=== PATIENT | male | born 1940 | race Caucasian/White ===

== ENCOUNTER 2017-10-06 14:06 | Observation (INO) | payer OTHER, BC ==
--- NOTE | 2017-10-06 16:20 | CPEKG ---
Heart Rate: 64 RR Interval: 938 P-R Interval: 220 QRSD Interval: 88 QT Interval: 388 QTC Interval: 401 P [place]: 87 QRS [place]: 53 T Wave [place]: 62 EKG Severity - ABNORMAL ECG - EKG Impression: SINUS RHYTHM EKG Impression: FIRST DEGREE AV BLOCK Electronically Signed By: Soham Honeycutt 06-Oct-2017 18:56:36
--- NOTE | 2017-10-06 16:29 | EDPHY ---
H & P Stated Complaint: 20 seconds vision loss to left eye last night. Time Seen by Provider: 10/06/17 15:56 HPI/ROS: CHIEF COMPLAINT: Transient vision loss left eye HISTORY OF PRESENT ILLNESS: The patient presents to the ED after he experienced an episode of transient vision loss in his left eye yesterday. The patient describes approximately 20 second vision loss of his superior visual field. The patient reports a similar episode 18 months ago which ultimately resulted in him getting endarterectomy. The patient is currently on a baby aspirin. He has no history of atrial fibrillation. The patient denies any complaints of arrhythmia. The patient has no complaints of acute headache. He denies any complaints of neck pain or cervical manipulation. The patient denies any peripheral numbness or weakness. He has had no recurrence symptoms today. He spoke with his primary care provider who advised him to come to the emergency department for further evaluation. REVIEW OF SYSTEMS: A comprehensive 10 point review of systems is otherwise negative aside from elements mentioned in the history of present illness. Source: Patient Exam Limitations: No limitations - Personal History Current Tetanus Diphtheria and Acellular Pertussis (TDAP): Yes - Medical/Surgical History Hx Asthma: No Hx Chronic Respiratory Disease: No Hx Diabetes: No Hx Cardiac Disease: No Hx Renal Disease: No Hx Cirrhosis: No Hx Alcoholism: No Hx HIV/AIDS: No Hx Splenectomy or Spleen Trauma: No Other PMH: NON HODGKIN LYMPHOMA, PROSTRATE CANCER, 2 STEM CELL TRANSPLANTS, CHEMOTHERAPY, SUBCLAVIN TO CAROTID ARTERY BYPASS- spring 2015. - Social History Smoking Status: Never smoked - Physical Exam Exam: General Appearance: Alert, no distress Eyes: Pupils equal and round no pallor or injection ENT, Mouth: Mucous membranes moist Respiratory: There are no retractions, lungs are clear to auscultation Cardiovascular: Regular rate and rhythm Gastrointestinal: Abdomen is soft and nontender, no masses, bowel sounds normal Neurological: A&O, normal motor function, normal sensory exam, normal cranial nerves Skin: Warm and dry, no rashes, carotid incision clean dry and intact Musculoskeletal: Neck is supple nontender Extremities: symmetrical, full range of motion Constitutional: Initial Vital Signs Temperature (C) 36.6 C 10/06/17 14:11 Heart Rate 85 10/06/17 14:11 Respiratory Rate 16 10/06/17 14:11 Blood Pressure 120/94 H 10/06/17 14:11 O2 Sat (%) 96 10/06/17 14:11 O2 Delivery Mode Room Air Allergies/Adverse Reactions: lorazepam [From Ativan] Allergy (Intermediate, Verified 08/11/16 12:40) Vomiting oxycodone [Oxycodone] Allergy (Intermediate, Verified 08/11/16 12:40) Vomiting sulfamethoxazole [From Bactrim] Allergy (Intermediate, Verified 08/11/16 12:40) Vomiting trimethoprim [From Bactrim] Allergy (Intermediate, Verified 08/11/16 12:40) Vomiting Home Medications: Medication Instructions Recorded Levothyroxine [Synthroid 50 mcg 50 mcg PO HS 04/22/12 (*)] Aspirin [Aspirin 81mg (*)] 81 mg PO HS 04/12/16 Herbals/Supplements -Info Only 1 tab PO HS 04/12/16 Cholecalciferol Vit D3 [Vitamin D3 5,000 units PO DAILY 10/06/17 (*)] [place]-3 Fatty Acids [Fish Oil 1000 1,000 mg PO DAILY 10/06/17 mg (*)] Tears/Dextran 70/Hypromellose 2 drop EACHEYE TID PRN 10/06/17 [Natural Balance Tears (*)] Medical Decision Making - Diagnostics EKG Interpretation: EKG: Complete interpretation has been separately recorded in the [facility] archive. Summary impression: Sinus rhythm, first-degree AV block, LVH Imaging Results: Imaging Impressions Head CT 10/06/17 17:13 Impression: Normal. Findings and recommendations discussed with Soham Honeycutt at 1750 hour, 10/06. Final report concurs with initial preliminary interpretation. ED Course/Re-evaluation: The patient presents to the ED after a recurrence brief episode of left vision loss in his left eye. The patient arrives with an NIH stroke scale is 0. He is not a candidate for thrombolytics therapy. Given his history of carotid vascular disease a CT angiogram of the head neck were obtained. CT scan of the brain was also obtained which demonstrated no evidence of an acute intracranial hemorrhage. The patient is noted to have ongoing stenotic lesions throughout his left carotid system. The patient was seen in consultation by Dr. Powell from Neurosurgery who will contemplate what additional workup may be indicated. The patient's vascular surgeon has been notified via the on-call general surgeon Dr. Dillon. Their service will consult on the patient tomorrow. The patient has been started on heparin with a bolus and drip. Consultation was made with Dr. Carloz Ugalde from the hospitalist service who will admit the patient this evening. 7:00 p.m.: The patient was re-evaluated. He continues to be hemodynamically stable with a nonfocal neurologic examination. Differential Diagnosis: Differential diagnosis considered includes stroke, intracranial hemorrhage, TIA , vascular dissection, vascular stenosis - Data Points Laboratory Results: Laboratory Results 10/06/17 16:22 10/06/17 16:22 10/06/17 10/06/17 10/06/17 16:22 16:22 16:22 WBC 13.50 10^3/uL H 10^3/uL (3.80-9.50) RBC 4.57 10^6/uL 10^6/uL (4.40-6.38) Hgb 14.5 g/dL g/dL (13.7-17.5) Hct 42.3 % % (40.0-51.0) MCV 92.6 fL fL (81.5-99.8) MCH 31.7 pg pg (27.9-34.1) MCHC 34.3 g/dL g/dL (32.4-36.7) RDW 14.5 % % (11.5-15.2) Plt Count 319 10^3/uL 10^3/uL (150-400) MPV 9.8 fL fL (8.7-11.7) Neut % (Auto) 34.4 % L % (39.3-74.2) Lymph % (Auto) 55.3 % H % (15.0-45.0) [place] % (Auto) 8.6 % % (4.5-13.0) Eos % (Auto) 0.9 % % (0.6-7.6) Baso % (Auto) 0.6 % % (0.3-1.7) Nucleat RBC Rel Count 0.0 % % (0.0-0.2) Absolute Neuts (auto) 4.64 10^3/uL 10^3/uL (1.70-6.50) Absolute Lymphs (auto) 7.47 10^3/uL H 10^3/uL (1.00-3.00) Absolute Monos (auto) 1.16 10^3/uL H 10^3/uL (0.30-0.80) Absolute Eos (auto) 0.12 10^3/uL 10^3/uL (0.03-0.40) Absolute Basos (auto) 0.08 10^3/uL 10^3/uL (0.02-0.10) Absolute Nucleated RBC 0.00 10^3/uL 10^3/uL (0-0.01) Immature Gran % 0.2 % % (0.0-1.1) Seg Neutrophils % 34 % % Lymphocytes % 55 % % Monocytes % 9 % % Eosinophils % 2 % % Immature Gran # 0.03 10^3/uL 10^3/uL (0.00-0.10) Absolute Seg Neuts 4.59 10^/uL 10^/uL (1.70-6.50) Absolute Lymphocytes 7.43 10^3/uL H 10^3/uL (1.00-3.00) Absolute Monocytes 1.22 10^3/uL H 10^3/uL (0.30-0.80) Absolute Eosinophils 0.27 10^3/uL 10^3/uL (0.03-0.40) RBC/WBC/PLT Morphology NORMAL (NORMAL) Atypical Lymphocytes 2+ H Platelet Estimate ADEQUATE (ADEQ) Smear Review By Pending PT 14.3 SEC SEC (12.0-15.0) INR 1.12 (0.83-1.16) APTT 29.8 SEC SEC (23.0-38.0) Sodium 140 mEq/L mEq/L (134-144) Potassium 3.9 mEq/L mEq/L (3.5-5.2) Chloride 100 mEq/L mEq/L (97-110) Carbon Dioxide 28 mEq/l mEq/l (22-31) Anion Gap 12 mEq/L mEq/L (8-16) BUN 31 mg/dL H mg/dL (7-23) Creatinine 1.0 mg/dL mg/dL (0.7-1.3) Estimated GFR > 60 Glucose 91 mg/dL mg/dL (70-100) Calcium 9.8 mg/dL mg/dL (8.5-10.4) Medications Given: Discontinued Medications Heparin Sodium (Porcine) (Heparin Injection) 0 unit IVP EDNOW ONE PRN Reason: Protocol Stop: 10/06/17 18:02 Last Admin: 10/06/17 18:30 Dose: 4,000 unit Sodium Chloride (Ns) 1,000 mls @ 0 mls/hr IV EDNOW ONE; Wide Open PRN Reason: Protocol Stop: 10/06/17 17:14 Last Admin: 10/06/17 18:29 Dose: 1,000 mls Heparin Sodium (Porcine) (Heparin 50 Units/Ml (Premix)) 500 mls @ 0 mls/hr IV EDNOW ONE; Per Protocol PRN Reason: Protocol Stop: 10/06/17 18:02 Last Admin: 10/06/17 18:31 Dose: 500 mls Departure - Departure Disposition: [facility] Clinical Impression: Transient cerebral ischemia, Carotid stenosis, left Condition: Fair
[2017-10-06 16:43] LABS: % IMMATURE GRANULYOCYTES 0.2 % (0.0-1.1); ABSOLUTE IMMATURE GRANULOCYTES 0.03 10^3/uL (0.00-0.10); ADD DIFF? NO; ADD MORPH? NO; ADD SCAN? YES; ATYPICAL LYMPHOCYTE FLAG 0 (0-99); FRAGMENT RBC FLAG 0 (0-99); HEMATOCRIT 42.3 % (40.0-51.0); HEMOGLOBIN 14.5 g/dL (13.7-17.5); LEFT SHIFT FLG 0 (0-99); LIPEMIA HEMOLYSIS FLAG 90 (0-99); MEAN CELL HEMOGLOBIN 31.7 pg (27.9-34.1); MEAN CELL HEMOGLOBIN CONCENTR. 34.3 g/dL (32.4-36.7); MEAN CELL VOLUME 92.6 fL (81.5-99.8); MEAN PLATELET VOLUME 9.8 fL (8.7-11.7); PLATELET CLUMPS FLAG 50 (0-99); PLATELET COUNT 319 10^3/uL (150-400); RED BLOOD CELL COUNT 4.57 10^6/uL (4.40-6.38); RED CELL DISTRIBUTION WIDTH 14.5 % (11.5-15.2)
[2017-10-06 16:56] LABS: SCAN POSITIVE
[2017-10-06 17:06] LABS: ANION GAP 12 mEq/L (8-16); CALCIUM 9.8 mg/dL (8.5-10.4); CARBON DIOXIDE 28 mEq/l (22-31); CHLORIDE 100 mEq/L (97-110); GLOMERULAR FILTRATION RATE > 60; GLUCOSE 91 mg/dL (70-100); POTASSIUM 3.9 mEq/L (3.5-5.2); SODIUM 140 mEq/L (134-144)
[2017-10-06 17:08] LABS: PLATELET ESTIMATE ADEQUATE (ADEQ)
[2017-10-06] MEDS ORDERED: NS 1,000 ML IV ONE (17:13)
[2017-10-06] MEDS ORDERED: IOPAMIDOL (ISOVUE 370) 100 ML BTL IV ONE (17:20)
[2017-10-06] MEDS ORDERED: HEPARIN/DEXTROSE 500 ML IV ONE (18:01)
[2017-10-06] MEDS ORDERED: HEPARIN 10,000 UNIT/10 ML MDV IVP ONE (18:01)
[2017-10-06 18:10] LABS: APTT 29.8 SEC (23.0-38.0)
[2017-10-06 18:21] LABS: INR 1.12 (0.83-1.16); PROTIME(PATIENT) 14.3 SEC (12.0-15.0)
[2017-10-06] MEDS ORDERED: ONDANSETRON 4 MG/2 ML VIAL IVP PRN (18:32)
[2017-10-06] MEDS ORDERED: ONDANSETRON DISINTEGRATING 4 MG TAB PO PRN (18:32)
[2017-10-06] MEDS ORDERED: ACETAMINOPHEN 325 MG TAB PO PRN (18:32)
[2017-10-06] MEDS ORDERED: HEPARIN 10,000 UNIT/10 ML MDV IVP PRN (18:32)
[2017-10-06] MEDS ORDERED: HEPARIN/DEXTROSE 500 ML IV SCH (18:45)
[2017-10-06] MEDS ORDERED: TEARS/DEXTRAN 70/HYPROMELLOSE 15 ML OPHT.BTL EACHEYE PRN (19:00)
--- NOTE | 2017-10-06 20:33 | GHP ---
[f rep st] HISTORY AND PHYSICAL DATE OF ADMISSION: 10/06/2017 CHIEF COMPLAINT: Transient loss of vision in left eye. HISTORY OF PRESENT ILLNESS: A 77-year-old man with a history of amaurosis fugax, who presents with l oss of vision in his left eye, which has resolved. This was last night. It was very transient, 20-3 0 seconds. Like a fog coming down from top to bottom. He only lost vision in the top half of the fi eld. He did not lose vision in the bottom half. He did not have any confusion, weakness, or numbnes s anywhere else. He has a history of similar episode which he describes as being much worse in the past. This led to diagnosis of significant carotid stenosis. He is now status post a bypass in March of 2016 from his castañeda bclavian to his left carotid. This was done by Dr. Zhang. He has a history of non-Hodgkin lymphoma and underwent significant radiation, which likely caused these issues. He has been on an aspirin, no t Plavix. PAST MEDICAL/SURGICAL HISTORY: 1. Hypothyroid. 2. Non-Hodgkin's lymphoma status post stem cell transplant as well as radiation, he tells me he is i n remission. 3. Subclavian to carotid bypass, as above. MEDICATIONS: Please see medication reconciliation. ALLERGIES: Ativan, oxycodone, and Bactrim. SOCIAL HISTORY: He does not drink or smoke. FAMILY HISTORY: This is reviewed and noncontributory. REVIEW OF SYSTEMS: A 10-point review of systems is conducted and is negative except for HPI. PHYSICAL EXAMINATION: VITAL SIGNS: Blood pressure 120/94, heart rate 85, respiration rate 16, sat 9 6% on room air, temperature 36.6. GENERAL: The patient is a very pleasant man who is resting comfor tably in no acute distress. HEENT: Shows him to be normocephalic atraumatic. NECK: Shows him to h ave significant left side carotid bruit. CARDIAC: Shows him to be regular rate and rhythm. No murm urs, rubs or gallops. PULMONARY: Shows lungs clear to auscultation bilaterally. ABDOMEN: Soft, no ntender, nondistended. SKIN: Shows no rash. : No Haines. NEUROLOGIC: Shows him to be alert and oriented x3. Cranial nerves 2-12 are intact. Motor and sensation are intact in in his upper and lo wer extremities. PSYCHIATRIC: Shows him to have a normal mood and affect. LABORATORY DATA: White count is 13, INR 1.1. BUN 31. DATA: 1. I discussed this with Dr. Powell. 2. I discussed this with Dr. Honeycutt. 3. I personally reviewed and interpreted his EKG. This shows sinus rhythm. He has a 1st degree AV block. 4. Head CT scan shows nothing acute. 5. Head and neck CTA, preliminary read shows significant proximal carotid stenosis. He has a signif icant distal stenosis as well. He has an occluded vert, final read is pending. IMPRESSION/PLAN: A 77-year-old man presents with recurrent amaurosis fugax. 1. Amaurosis fugax: Certainly due to his carotid disease. Given the significance of it, I will cherelle ce him on heparin overnight. I discussed this informally with Dr. Powell, who would consider a formal angiogram. However, he is concerned about thrombotic potential with this and is some reluctant. Dr Enmanuel Zhang has been consulted by the emergency department and will see the patient in consultation. I p laced a Neurology consult as well as standard transient ischemic attack workup. He likely will not n eed anticoagulation permanently; however I feel that overnight this is the best course of action give n the acute event. 2. History of non-Hodgkin's lymphoma: He is status post stem cell transplant. His white count is p ersistently elevated, at its baseline. He follows with Dr. Freeman here. /[id number]/MODL
[2017-10-06] MEDS ORDERED: LEVOTHYROXINE 50 MCG TAB PO SCH (21:00)
[2017-10-07 01:01] LABS: INR 1.21 (0.83-1.16); PROTIME(PATIENT) 15.3 SEC (12.0-15.0)
[2017-10-07 01:26] LABS: APTT 136.3 SEC (23.0-38.0)
[2017-10-07 02:18] LABS: % IMMATURE GRANULYOCYTES 0.2 % (0.0-1.1); ABSOLUTE IMMATURE GRANULOCYTES 0.02 10^3/uL (0.00-0.10); ADD DIFF? NO; ADD MORPH? NO; ADD SCAN? NO; ATYPICAL LYMPHOCYTE FLAG 0 (0-99); FRAGMENT RBC FLAG 50 (0-99); HEMATOCRIT 37.4 % (40.0-51.0); HEMOGLOBIN 13.3 g/dL (13.7-17.5); LEFT SHIFT FLG 0 (0-99); LIPEMIA HEMOLYSIS FLAG 90 (0-99); MEAN CELL HEMOGLOBIN 32.6 pg (27.9-34.1); MEAN CELL HEMOGLOBIN CONCENTR. 35.6 g/dL (32.4-36.7); MEAN CELL VOLUME 91.7 fL (81.5-99.8); MEAN PLATELET VOLUME 9.8 fL (8.7-11.7); PLATELET CLUMPS FLAG 30 (0-99); PLATELET COUNT 295 10^3/uL (150-400); RED BLOOD CELL COUNT 4.08 10^6/uL (4.40-6.38); RED CELL DISTRIBUTION WIDTH 14.4 % (11.5-15.2)
[2017-10-07 02:23] LABS: ALANINE AMINOTRANSFERASE 37 IU/L (21-72); ALBUMIN 3.4 g/dL (3.5-5.0); ALKALINE PHOSPHATASE 56 IU/L (38-126); ANION GAP 10 mEq/L (8-16); ASPARTATE AMINOTRANSFERASE 44 IU/L (17-59); BILIRUBIN,TOTAL 0.4 mg/dL (0.1-1.4); CALCIUM 8.8 mg/dL (8.5-10.4); CARBON DIOXIDE 25 mEq/l (22-31); CHLORIDE 105 mEq/L (97-110); CHOLESTEROL 197 mg/dL (140-220); CHOLESTEROL/HDL RATIO 3.79 RATIO (1.00-4.97); CREATININE 0.8 mg/dL (0.7-1.3); GLOMERULAR FILTRATION RATE > 60; GLUCOSE 85 mg/dL (70-100); HIGH DENSITY LIPOPROTEIN 52 mg/dL (40-65); LDL/HDL RATIO 2.58 RATIO (1.00-3.64); LOW DENSITY LIPOPROTEIN 134 mg/dL (80-100); NON-HIGH DENSITY LIPOPROTEIN 145 mg/dL (90-129); POTASSIUM 3.7 mEq/L (3.5-5.2); SODIUM 140 mEq/L (134-144); TOTAL PROTEIN 5.8 g/dL (6.3-8.2); TRIGLYCERIDE 58 mg/dL (40-150); VERY LOW DENSITY LIPOPROTEINS 11 mg/dL (8-25)
[2017-10-07 02:35] LABS: APTT 100.6 SEC (23.0-38.0)
[2017-10-07] MEDS ORDERED: OMEGA-3 FATTY ACIDS 1,000 MG CAP PO SCH (09:00)
[2017-10-07] MEDS ORDERED: CHOLECALCIFEROL VIT D3 2,000 UNITS TAB/CAP PO SCH (09:00)
--- NOTE | 2017-10-07 10:03 | NEUROPROG ---
Assessment: [id number] CC: Dr. Ugalde consulted for possible TIA. Results placed in the EMR for his review. HPI: Pt admitted to [facility] on 10/06/17 for transient vision loss in left eye concerning for TIA. Vision loss occurred the night of 10/05/17 for 20-30 seconds. He had a similar episode in March 2016 from a carotid stenosis on the left. He had a surgery (bypass) for this by Dr. Zhang. He had a history of non-Hodgkin lymphoma for which he underwent significant radiation which is likely the cause of his multiple stenosis areas noted on head/neck CTA on 10/06/17. He has been taking aspirin but not plavix. I initially saw him on 10/07/17. PMHx: hypothyroidism, TIA (amaurosis fugax left eye) March 2016 from symptomatic left carotid stenosis with subsequent carotid to subclavian bypass, [place] lymphoma SHx: no tobacco FHx: NC ROS: Pt denied acute fever, total vision loss, active severe chest pain, respiratory failure, total body severe rash, total bowel/bladder incontinence, psychosis, active seizures, or active bleeding O: VS reviewed General: Alert Eyes: Fundoscopic exam not able to visualize optic disks CV: Heart RRR, no murmur, no carotid bruit Lungs: Clear to auscultation bilaterally, no rhonci or rales Neuro: - Mental: . Oriented x person/place/date . concentration appears normal . speech fluency/comprehension normal . memory appears normal . fund of knowledge appear intact - Cranial Nerves: . II: PERRL, VFFTC . III/IV/: EOMI, no nystagmus, normal smooth pursuits, no Ptosis . V: facial sensation intact to LT . VII: face symmetric to eye closure and smile . VIII: hearing intact to conversation . IX/X: uvula raises symmetrically . XI: SCM 5/5 B/L strength . XII: tongue protrudes midline w/nl strength - Motor: . Tone: normal tone in all 4 extrem . Strength: no pronator drift, strength 5/5 throughout (B/L delt, bic, tri, hand crocheter hand, hf/he, df/pf) - Reflexes: B/L bic/BR/patella 2/4 - Sensory: all 4 extrem intact to light touch - Coord: [id number] wnl, LUCIA wnl, [id number] wnl - Gait: deferred - NIH SS 0 Labs: 10/07/17- LDL 134H Rads: 10/06/17- Head CT: normal (I personally visualized the images on 10/07/17) 10/06/17- CTA head/neck: left ICA 50% stenosis and supraclinoid 80-90% stenosis, patent left subclavian to carotid bypass, occluded left vert, b/l vert 80-90% stenosis Assessment: 1. TIA causing left eye amaurosis fugax 20-30 sec from symptomatic left carotid stenosis on 10/05/17: His neurologic exam is normal on 10/07/17. His CTA shows multiple abnormalities (results above) but it appears he has two areas of stenosis on his left carotid artery which are likely causing distal embolization to the the left opthamalogic artery. Pt will need maximal medical management for stroke prevention going forward. 2. History of lymphoma: in remission Plan: - Dr. Powell (neurosurgery) and Dr. Zhang (vascular surgery) both consulted to evaluate possible procedures for his symptomatic left carotid stenosis (2 areas) - Agree with IV anticoagulation at this time until we can determine appropriate long-term therapy which will likely be aspirin 81 mg, Plavix 75 mg qd, and high dose statin with LDL goal < 70 (134) - Labs: H1AC pending - blood pressure < 140/90 - Brain MRI w/o con - 24 hour telemetry and TTE - F/U in 1-4 weeks with neurology clinic after discharge Objective: Vital Signs Temp Pulse Resp BP Pulse Ox 36.5 C 73 16 125/85 H 95 10/07/17 05:11 10/07/17 08:07 10/07/17 08:07 10/07/17 08:07 10/07/17 08:07 Laboratory Results 10/07/17 01:55 10/07/17 01:55 10/06/17 10/07/17 10/08/17 05:59 05:59 05:59 Intake Total 1030 Output Total 400 Balance 630 PT 15.3 SEC (12.0-15.0) H 10/07/17 00:10 INR 1.21 (0.83-1.16) H 10/07/17 00:10 Allergies/Adverse Reactions: lorazepam [From Ativan] Allergy (Intermediate, Verified 08/11/16 12:40) Vomiting oxycodone [Oxycodone] Allergy (Intermediate, Verified 08/11/16 12:40) Vomiting sulfamethoxazole [From Bactrim] Allergy (Intermediate, Verified 08/11/16 12:40) Vomiting trimethoprim [From Bactrim] Allergy (Intermediate, Verified 08/11/16 12:40) Vomiting
[2017-10-07 11:28] LABS: HEMOGLOBIN A1C 5.9 % (4.0-6.0)
[2017-10-07] MEDS ORDERED: ATORVASTATIN CALCIUM 40 MG TAB PO SCH (14:30)
--- NOTE | 2017-10-07 15:17 | SOAPPROG ---
[facility] Progress Note Assessment/Plan: Assessment: 77-year-old male status post TIA Reports he is doing well, no other episodes since yesterday's less than 15 minute event. No weakness or numbness of extremities. 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 Plan: Recommend restarting Plavix and continue as outpatient, no easy surgical solution at this time, could consider common carotid ligation in future if necessary. Patient seen examined by Dr. Zhang. No surgery planned at this time. 10/07/17 15:15 Objective: Vital Signs Temp Pulse Resp BP Pulse Ox 36.5 C 71 19 123/85 H 95 10/07/17 05:11 10/07/17 11:39 10/07/17 11:39 10/07/17 11:39 10/07/17 11:39 Laboratory Results 10/07/17 01:55 10/07/17 01:55 10/06/17 10/07/17 10/08/17 05:59 05:59 05:59 Intake Total 1030 Output Total 400 Balance 630 PT 15.3 SEC (12.0-15.0) H 10/07/17 00:10 INR 1.21 (0.83-1.16) H 10/07/17 00:10 ICD10 Worksheet Patient Problems: Problems Problem Status Onset Carotid stenosis, left Acute Transient cerebral ischemia Acute Carotid artery disease Acute
[2017-10-07 15:35] VITALS: BP 108/80; PULSE 66; RESP 18; TEMP 98.5; O2SAT 21
[2017-10-07] MEDS ORDERED: CLOPIDOGREL BISULFATE 75 MG TAB PO SCH (16:00)
--- NOTE | 2017-10-07 16:08 | ASMTCMCOM ---
CM Note CM Note Notes: Met with patient regaring discharge plan of care. Patient states he does not have any needs upon discharge. He will discharge home with support of partner. Case Management available should any needs arise. Date Signed: 10/07/2017 04:08 PM Electronically Signed By:Bonnie Schroeder RN
--- NOTE | 2017-10-07 16:44 | ASDISCHSUM ---
Discharge Information Plan Status:Home with No Needs Medically Cleared to Leave: Discharge Date:10/07/2017 04:38 PM D/C Disposition:Home, Routine, Self-Care ADT D/C Disposition:Home, Routine, Self-Care Projected Discharge Date:10/07/2017 04:38 PM Transportation at D/C: Discharge Delay Reason: Follow-Up Date:10/07/2017 04:38 PM Discharge Slot: Final Diagnosis: Placement Information Patient Contact Information Contact Name:AVIS Relationship:Life Partner Address:[address] [place] [address] City:[place] Alternate Phone: [facility]/Zip Code:[place] [address] Email: Financial Information Financial Class: Primary Plan Desc:MEDICARE OUTPATIENT Primary Plan Number:[id number] Secondary Plan Desc:[facility] [employer]ERAL PLAN Secondary Plan Number:[id number] Assessment Information [facility] CM Progress Note CM Note CM Note Notes: Met with patient regaring discharge plan of care. Patient states he does not have any needs upon discharge. He will discharge home with support of partner. Case Management available should any needs arise. Date Signed: 10/07/2017 04:08 PM Electronically Signed By:Bonnie Schroeder RN Intervention Information
[2017-10-07] MEDS ORDERED: ASPIRIN 81 MG CHEWABLE TAB PO SCH (21:00)
--- NOTE | 2017-10-07 23:45 | GDS ---
[f rep st] DISCHARGE SUMMARY DISCHARGE DIAGNOSES: 1. Transient ischemic attack with amaurosis fugax. 2. High-grade stenosis of the left internal carotid artery. 3. Previous left subclavian to carotid bypass. 4. 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 5. Previous non-Hodgkin lymphoma, status post stem cell transplant. 6. Previous radiation therapy for lymphoma leading to vascular disease discussed above. HISTORY: The patient is a 77-year-old male, who presented with transient amaurosis fugax. He has a history of similar episodes in the past, which led to a diagnosis of carotid stenosis, and he underwe nt a subclavian to left carotid bypass in [place] [address] Zhang. He was on a daily aspirin, but not Plavix. He was previously on a statin, but he ran out of his medication and did not get it refilled, although he has no previous intolerance to the drug. He was admitted to the hospital after this recurrence of TIA. His CT angiogram of the head and neck continues to show significant left carotid artery stenosis; however, his bypass is widely patent. Th is CT angiogram was reviewed by Dr. Zhang, and he feels there is nothing more to do at this time. He is suboptimally medically managed. He was seen here by Dr. Cordova. We will resume his statin drug fo r a goal LDL of less than 70. His LDL today is 134. He was initiated on Lipitor 80 mg p.o. daily. Plavix 75 mg p.o. daily was added to his aspirin. He had an echo and telemetry monitoring that was u nremarkable for cardiac source of embolism. MRI of the brain was negative for acute stroke. He was back to baseline and desired discharge home. DISCHARGE MEDICATIONS: Please see computerized record for full detailed list. New medications inclu de Plavix 75 mg p.o. daily, which he will take in addition to his previous aspirin 81 mg p.o. daily. Atorvastatin 80 mg p.o. daily. ADDITIONAL DISCHARGE INSTRUCTIONS: Follow up with Dr. Cordova in 2 weeks. Patient was seen and examined by me on the day of discharge. /[id number]/MODL
== END 2017-10-07 16:38 | disposition home or self-care (01) ==
LOC: F3N 22:11
PROVIDERS: ADMIT Student in an Organized Health Care Education/Training Program; ATTEND Internal Medicine
DX: G45.3 Amaurosis fugax (principal); Z95.1 Presence of aortocoronary bypass graft; Z85.72 Personal history of non-Hodgkin lymphomas; Z92.3 Personal history of irradiation; Z94.81 Bone marrow transplant status
CPT/HCPCS: 70450; 70496; 70498; 70551; 93005; J1644; Q9967; 85520-90; 96374

== ENCOUNTER → 2017-11-29 | Outpatient (CLI) | payer OTHER, BC | LOC: FIMAGING 10:31 | PROVIDERS: ATTEND Internal Medicine Hematology & Oncology | DX: Z08 Encounter for follow-up examination after completed treatment for malignant neoplasm (principal); Z85.858 Personal history of malignant neoplasm of other endocrine glands; Z92.3 Personal history of irradiation ==

== ENCOUNTER 2018-03-09 18:02 | Inpatient (IN) | payer OTHER, BC ==
[~2018-03-09 18:02] MED LIST: IOPAMIDOL (ISOVUE-300) 100 ML BTL ONE
[2018-03-09] MEDS ORDERED: NS 1,900 ML IV ONE (18:34)
--- NOTE | 2018-03-09 18:34 | EDPHY ---
H & P Stated Complaint: 5 wks r chest discomfort/ct today/pleural effusion/?infection Time Seen by Provider: 03/09/18 18:22 HPI/ROS: CHIEF COMPLAINT: Possible joint infection HISTORY OF PRESENT ILLNESS: Patient is a 77-year-old man with a history of lymphoma that is been in remission for 7 years. He was seen by his primary a few weeks ago and diagnosed with pneumonia that culture positive for strep pneumonia. He was treated with a Z-Akira successfully however after the pneumonia improved he started having swelling and pain to his right upper chest. Today he had a CT done through his primary is office the and he was found to have soft tissue swelling in that area as well as a joint effusion at the sternoclavicular joint. They referred him to the ER with concern for septic arthritis. They did consult Dr. Markham from [place] as well. Patient denies shortness of breath. He has no chest pain other than the tenderness to the right sternal area. No pain with neck movement or turning. He does have a fever. REVIEW OF SYSTEMS: Constitutional: denies: chills, fever, recent illness, recent injury EENTM: denies: blurred vision, double vision, nose congestion Respiratory: denies: cough, shortness of breath Cardiac: denies: chest pain, irregular heart rate, lightheadedness, palpitations Gastrointestinal/Abdominal: denies: abdominal pain, diarrhea, nausea, vomiting, blood streaked stools Genitourinary: denies: dysuria, frequency, hematuria, pain Musculoskeletal: See HPI Skin: denies: lesions, rash, jaundice, bruising Neurological: denies: headache, numbness, paresthesia, tingling, dizziness, weakness Hematologic/Lymphatic: denies: blood clots, easy bleeding, easy bruising Immunologic/allergic: denies: HIV/AIDS, transplant EXAM: GENERAL: Well-appearing, well-nourished and in no acute distress. HEAD: Atraumatic, normocephalic. EYES: Pupils equal round and reactive to light, extraocular movements intact, sclera anicteric, conjunctiva are normal. ENT: TMs normal, nares patent, oropharynx clear without exudates. Moist mucous membranes. NECK: Normal range of motion, supple without lymphadenopathy or JVD. LUNGS: Breath sounds clear to auscultation bilaterally and equal. No wheezes rales or rhonchi. HEART: Regular rate and rhythm without murmurs, rubs or gallops. ABDOMEN: Soft, nontender, normoactive bowel sounds. No guarding, no rebound. No masses appreciated. BACK: No CVA tenderness, no spinal tenderness, step-offs or deformities EXTREMITIES: Normal range of motion, no pitting or edema. No clubbing or cyanosis. NEUROLOGICAL: Cranial nerves II through XII grossly intact. Normal speech, normal gait. 5/5 strength, normal movement in all extremities, normal sensation PSYCH: Normal mood, normal affect. SKIN: Slight erythema and warmth and swelling to the right sternal area. Mildly tender. Source: Patient Exam Limitations: No limitations - Personal History Current Tetanus/Diphtheria Vaccine: Yes - Medical/Surgical History Hx Asthma: No Hx Chronic Respiratory Disease: No Hx Diabetes: No Hx Cardiac Disease: No Hx Renal Disease: No Hx Cirrhosis: No Hx Alcoholism: No Hx HIV/AIDS: No Hx Splenectomy or Spleen Trauma: No Other PMH: NON HODGKIN LYMPHOMA, PROSTRATE CANCER, 2 STEM CELL TRANSPLANTS, CHEMOTHERAPY, SUBCLAVIN TO CAROTID ARTERY BYPASS- spring 2015. - Social History Smoking Status: Never smoked Alcohol Use: Sober Drug Use: None Constitutional: Initial Vital Signs Temperature (C) 37.6 C 03/09/18 18:11 Heart Rate 130 H 03/09/18 18:11 Respiratory Rate 20 03/09/18 18:11 Blood Pressure 118/95 H 03/09/18 18:11 O2 Sat (%) 92 03/09/18 18:11 O2 Delivery Mode Room Air O2 (L/minute) 2 Allergies/Adverse Reactions: lorazepam [From Ativan] Allergy (Intermediate, Verified 03/09/18 18:11) Vomiting sulfamethoxazole [From Bactrim] Allergy (Intermediate, Verified 03/09/18 18:11) Vomiting trimethoprim [From Bactrim] Allergy (Intermediate, Verified 03/09/18 18:11) Vomiting Home Medications: Medication Instructions Recorded Levothyroxine [Synthroid 50 mcg 50 mcg PO HS 04/22/12 (*)] Aspirin [Aspirin 81mg (*)] 81 mg PO HS 04/12/16 Herbals/Supplements -Info Only 1 tab PO HS 04/12/16 Cholecalciferol Vit D3 [Vitamin D3 5,000 units PO DAILY 10/06/17 (*)] Davison-3 Fatty Acids [Fish Oil 1000 1,000 mg PO DAILY 10/06/17 mg (*)] Clopidogrel Bisulfate [Plavix (*)] 75 mg PO HS 03/09/18 oxyCODONE IR [Oxycodone Ir (*)] 10 mg PO Q6H PRN 03/09/18 Medical Decision Making ED Course/Re-evaluation: 6:30 p.[address]. [address] Dr. Butler' PA who is currently in the department and will speak with him. I have paged Infectious Disease. 6:50 p.m. I discussed the case with Dr. Markham who recommends Rocephin and hospitalization to the hospitalist. Dr. Butler is here to consult. He would like to have IR drain it. 6:55 p.m. I discussed the case with Dr. Guzman who will admit. 7:[address] Butler attempted to aspirate the joint but was unsuccessful. Differential Diagnosis: Partial list of the Differential diagnosis considered include but were not limited to; septic joint, sepsis, pneumonia, lymphoma and although unlikely based on the history and physical exam, I also considered abscess, cancer. Critical Care Time: Critical care time spent by me, Dr. Jones exclusive with this patient was 45 minutes, exclusive of the PA time exclusive of procedures. The organ system that was at risk was musculoskeletal and I gave consultation, medications and admission to prevent worsening of the patient's condition - Data Points Medications Given: Clopidogrel Bisulfate (Plavix) 75 mg PO HS SONIA Stop: 09/05/18 20:59 Last Admin: 03/09/18 21:57 Dose: 75 mg Ketorolac Tromethamine (Toradol) 15 mg IVP Q6HRS SONIA Stop: 03/15/18 00:00 Last Admin: 03/10/18 05:52 Dose: 15 mg Levothyroxine Sodium (Synthroid) 50 mcg PO HS SONIA Stop: 09/05/18 20:59 Last Admin: 03/09/18 21:56 Dose: 50 mcg Senna/Docusate Sodium (Senokot-S) 1 - 2 tab PO BID SONIA PRN Reason: Protocol Stop: 09/05/18 20:59 Last Admin: 03/09/18 21:56 Dose: 2 tab Discontinued Medications Acetaminophen (Tylenol) 1,000 mg PO EDNOW ONE Stop: 03/09/18 18:38 Last Admin: 03/09/18 19:22 Dose: 1,000 mg Aspirin (Aspirin) 81 mg PO HS SONIA Stop: 09/05/18 20:59 Last Admin: 03/09/18 21:57 Dose: 81 mg Sodium Chloride (Ns) 1,900 mls @ 3,800 mls/hr 30 ml/kg infuse over 30 min ( 1900 ml) IV EDNOW ONE PRN Reason: Protocol Stop: 03/09/18 19:03 Last Admin: 03/09/18 19:10 Dose: 1,900 mls Ceftriaxone Sodium 2 gm/ (Sterile Water) 20 mls @ 300 mls/hr IV EDNOW ONE PRN Reason: Protocol Stop: 03/09/18 18:54 Last Admin: 03/09/18 19:55 Dose: 20 mls Sodium Chloride (Ns) 1,000 mls @ 100 mls/hr IV CONT SONIA Stop: 03/10/18 06:14 Last Admin: 03/09/18 21:59 Dose: 1,000 mls Ibuprofen (Motrin) 800 mg PO EDNOW ONE Stop: 03/09/18 18:39 Last Admin: 03/09/18 19:21 Dose: 800 mg Departure - Departure Disposition: [facility] Acute Clinical Impression: Septic arthritis Qualifiers: Septic arthritis location: unspecified location Septic arthritis organism: streptococcal Qualified Code(s): M00.20 - Other streptococcal arthritis, unspecified joint Condition: Fair
[2018-03-09] MEDS ORDERED: ACETAMINOPHEN 500 MG TAB PO ONE (18:37)
[2018-03-09] MEDS ORDERED: IBUPROFEN 800 MG TAB PO ONE (18:38)
[2018-03-09] MEDS ORDERED: cefTRIAXone 2 GM in STERILE WATER INJ 20 ML IV ONE (18:51)
[2018-03-09] MEDS ORDERED: ONDANSETRON DISINTEGRATING 4 MG TAB PO PRN (19:05)
[2018-03-09] MEDS ORDERED: ONDANSETRON 4 MG/2 ML VIAL IVP PRN (19:05)
[2018-03-09] MEDS ORDERED: POLYETHYLENE GLYCOL 3350 17 GM PKT PO PRN (20:05)
[2018-03-09] MEDS ORDERED: LACTULOSE 20 GM/30 ML UDCUP PO PRN (20:05)
[2018-03-09] MEDS ORDERED: MAGNESIUM HYDROXIDE 30 ML UDCUP PO PRN (20:05)
[2018-03-09] MEDS ORDERED: BISACODYL 10 MG SUPP PR PRN (20:05)
[2018-03-09] MEDS ORDERED: oxyCODONE IR 5 MG TAB PO PRN (20:06)
[2018-03-09] MEDS ORDERED: NS 1,000 ML IV SCH (20:15)
--- NOTE | 2018-03-09 20:40 | GHP ---
[f rep st] HISTORY AND PHYSICAL DATE OF ADMISSION: 03/09/2018 CHIEF COMPLAINT: Subclavicular joint infection. PRIMARY ONCOLOGIST: Dr. Freeman. HISTORY OF PRESENT ILLNESS: A pleasant 77-year-old male with history of non- Hodgkin's lymphoma, status post 2 stem cell transplants in remission, TIA, who was recently treated for pneumonia. Saw his PCP and was treated with a Z-Akira which he completed on 03/03/2018. States his cough and respiratory infections improved. In past 2 weeks he developed pain and tightness in his right upper chest that felt like a pulled muscle. It has become red, swollen and tender. Fevers to 101 for the past week, which he has been treating with Advil. Pain so bad that was using oxycodone. Chill, no myalgias, diarrhea, nausea, or vomiting. Per review of records, blood cultures were positive 02/27/2018 for strep pneumo and human metapneumovirus. The patient was not treated with IV antibiotics. REVIEW OF SYSTEMS: I completed a 10-point review of systems, negative except as noted in HPI. PAST MEDICAL HISTORY: 1. TIA September 2017. 2. Left internal carotid stenosis. 3. Status post left subclavian to carotid bypass. 4. History of non-Hodgkin's lymphoma status post chemotherapy. 5. Stem cell transplant that failed and then had an external donor and has now been in remission. 6. Hypertension, but off medications at this point. 7. Prostate cancer. 8. Hypothyroidism. PAST SURGICAL HISTORY: Prostatectomy and stem cell transplant x2, left subclavian to carotid bypass next. SOCIAL HISTORY: Lives in [place] with his partner of 20 years. Used to work for the [employer]. He is retired. Smokes medical marijuana for insomnia. No illicits or alcohol. FAMILY HISTORY: Mother with breast cancer. Dad with diabetes, hypertension. ALLERGIES: Ativan, Bactrim, permethrin. HOME MEDICATIONS: Oxycodone 10 mg p.r.n. omega-3, levothyroxine, herbal supplement, Plavix, vitamin D3, aspirin 81. PHYSICAL EXAM: VITAL SIGNS: Temperature 37.8, blood pressure 136/95, heart rate initially 130 now 97, respirations 18, 97% on 2 L. GENERAL: Well- appearing male sitting up in bed, no acute distress. HEENT: PERRLA. EOMI. Oropharynx clear. CV: Tachy but regular. No murmurs, gallops, or rubs. LUNGS : Clear. ABDOMEN: Soft, nontender, nondistended. Positive bowel sounds. : No H[place]. MUSCULOSKELETAL: Right upper chest with tenderness over the subclavicular joints; surrounding erythema and fullness. NEURO: Cranial nerves 2-12 intact. PSYCH: Alert and oriented x3. LYMPHADENOPATHY: None palpated. LABS: WBC 18, hemoglobin 13, hematocrit 38, platelets 441. Lactate is 1. Sodium 129, potassium 4, chloride 94, carbon dioxide 25, BUN 10, creatinine 0.8 , glucose is 136, calcium is 8.7. Chest x-ray personally reviewed by me. Bilateral upper lobe fibrosis. CT chest, indistinct lower lobe opacities, most likely inflammation or infectious. No consolidation. Small bilateral pleural effusions. Indeterminate soft tissue in the right neck extending into the superior mediastinum. No discrete abscess or focal mass. Asymmetric fullness of the right sternoclavicular joints, suggesting effusion. Grossly stable carotid and vertebral stenosis. ASSESSMENT AND PLAN: 1. Sepsis: Tachycardic with elevated white count and concern for subclavicular joint infection. He previously had a positive blood culture with Streptococcus pneumoniae February 27, without IV antibiotic treatment. Blood cultures are drawn here. Dr. Jones spoke with Dr. Markham and will start ceftriaxone. Orthopedics has been consulted. Normal lactate. 2. Tachycardia: due to acute infection, dehydration. Resolved with intravenous fluid resuscitation. 3. Hypovolemic hyponatremia. Will give IV fluids. Repeat in the morning. 4. Acute pain secondary to infection; p.r.n. oxycodone and Toradol. 5. History of carotid stenosis status post subclavian and carotid bypass. Will hold aspirin and Plavix until I speak with Surgery for possible intervention. 6. Leukocytosis, again secondary to acute infection. There are opacities on CT , but this is likely residual from his prior pneumonia and human metapneumovirus infection. He reports these symptoms have improved. 7. History of non-Hodgkin's lymphoma status post chemo XRT to stem cell transplant.Followed closely by Dr. Freeman. 8. History of prostate cancer: s/p prostatectomy. 9. Diet regular. 10. Deep vein thrombosis prophylaxis, sequential compression devices. 11. Disposition. Patient warrants inpatient admission, given acute concern for joint infection, sepsis, warranting IV fluids, antibiotics. /[id number]/MODL MTDD
[2018-03-09] MEDS ORDERED: ASPIRIN 81 MG CHEWABLE TAB PO SCH (21:00)
[2018-03-09] MEDS ORDERED: Herbals/Supplements -Info Only PO SCH (21:00)
[2018-03-09] MEDS: LEVOTHYROXINE 50 MCG TAB PO SCH (21:56)
[2018-03-09] MEDS: SENNOSIDES/DOCUSATE SODIUM TAB PO SCH (21:56)
[2018-03-09] MEDS: CLOPIDOGREL BISULFATE 75 MG TAB PO SCH (21:57)
[2018-03-09 23:06] LABS: PLATELET COUNT 594 10^3/uL (150-400)
[2018-03-09] MEDS: KETOROLAC 15 MG/1 ML SDV IVP SCH (23:51)
[2018-03-09 23:55] LABS: INR 1.27 (0.83-1.16); PROTIME(PATIENT) 16.1 SEC (12.0-15.0)
[2018-03-10] MEDS: KETOROLAC 15 MG/1 ML SDV IVP SCH (05:52)
--- NOTE | 2018-03-10 06:26 | GCON ---
[f rep st] CONSULTATION ORTHOPEDIC CONSULT DATE OF CONSULTATION: 03/09/2018 CHIEF COMPLAINT: Right sternoclavicular pain. HISTORY OF PRESENT ILLNESS: Patient is a 77-year-old male who has a history of lymphoma and has been in remission for 7 years. He was recently seen by his primary care physician a few weeks ago and was diagnosed with pneumonia, positive for strep pneumonia. He was on a Z-Akira, which improved his symptoms, and he finished last March 03. Patient states that while he was still on the Z-Akira, he started developing right sternoclavicular joint pain. He states that over this past week, the discomfort has significantly gotten worse, and he has had increased redness and swelling. His PCP referred him to come to the ER for a possible septic arthritis. Infectious Disease, Dr. Markham, was also consulted. The patient denies any chest pain besides the tenderness to palpation over the right sternoclavicular region. No shortness of breath. There is discomfort with rotation of his neck and movement. Patient does have a fever. We were consulted for orthopedic evaluation. PAST MEDICAL HISTORY: Non-Hodgkin lymphoma, prostate cancer, 2 stem cell transplants, chemotherapy, subclavian to carotid artery bypass. PAST SURGICAL HISTORY: Subclavian to carotid artery bypass. MEDICATIONS: See patient's medication list in chart. ALLERGIES TO MEDICATIONS: Lorazepam, sulfa. SOCIAL HISTORY: Patient is a noncigarette smoker. Does not drink alcohol or use recreational drugs. FAMILY HISTORY: Noncontributory. REVIEW OF SYSTEMS: A 10-point review was done. Negative for any other complaints, concerns, or history. PHYSICAL EXAM: GENERAL: Pleasant, NAD. HEENT: NC/AT, EOMI, PERRLA. Ears and nares patent without discharge. Oropharynx is clear. NECK: Nontender to palpation. Full range of motion. MUSCULOSKELETAL: Right clavicle and sternoclavicular joint: There is tenderness to palpation over the sternoclavicular joint with swelling and erythema. There is pain at the sternoclavicular joint with rotation of the patient's head. He has normal sensation to light touch in the right upper extremity. Distal pulse present in the right upper extremity. Skin has slight erythema, warm, with swelling to the right sternoclavicular area. NEUROLOGIC: Nonfocal. No deficits noted. PSYCHIATRIC: Alert and oriented x3. Appropriate mood and affect. RADIOGRAPHS: Reviewed. Chest CT shows asymmetric fullness of the right sternoclavicular joint suggesting effusion. IMPRESSION: Right sternoclavicular joint effusion, rule out infection. PLAN: Patient was seen and examined by Dr. Butler and myself today, and under sterile conditions, the right sternoclavicular joint was prepped. An aspiration was attempted. There was very little fluid aspirated, but it was sent for culture and Gram stain, crystals, and cell count. Conservative treatment was discussed including rest, ice, and the use of pain medicine as needed. We will follow up with the patient's lab results tomorrow. All questions were answered to the patient's satisfaction. /[id number]/MODL MTDD
--- NOTE | 2018-03-10 07:39 | SOAPPROG ---
SOAP Progress Note Assessment/Plan: Assessment: Right sternoclavicular joint effusion/pain that is improving Plan: Gram stain: no organism seen. Cultures: pending. F/u Final cultures. Patient is improving in his symptoms Continue Antibiotics per Hospitalist & ID Conservative treatment: ice, pain medicine as needed Ortho stable Subjective: Patient is up and sitting in a chair. He states his right sternoclavicular joint is improved and he has minimal to no pain. The redness is resolving. He states he feels much better today. Denies any fever or chills. Objective: Vital Signs Temp Pulse Resp BP Pulse Ox 36.9 C 95 15 135/85 H 94 03/10/18 07:29 03/10/18 07:29 03/10/18 07:29 03/10/18 07:29 03/10/18 07:29 Microbiology 03/09/18 19:10 Gram Stain - Final Shoulder - Aspirate Laboratory Results 03/10/18 03:36 03/10/18 03:36 03/09/18 03/10/18 03/11/18 05:59 05:59 05:59 Intake Total 2862 Output Total 875 Balance 1987 PT 16.1 SEC (12.0-15.0) H 03/09/18 22:57 INR 1.27 (0.83-1.16) H 03/09/18 22:57 Physical exam of the right sternoclavicular joint: decreased erythema and minimal tenderness to palpation. He has no pain with rotation of his neck. Normal sensation to light touch in the RUE. Distal pulse present in the RUE. ICD10 Worksheet Patient Problems: Problems Problem Status Onset Septic arthritis Acute Carotid artery disease Acute Carotid stenosis, left Acute Transient cerebral ischemia Acute
--- NOTE | 2018-03-10 07:54 | PDMN ---
Medical Necessity Medical necessity: Pt meets INPT criteria per MD as of 03/09/18 (est. LOS >2 MN for eval/tx of sepsis, concern for subclavicular joint infection, tachycardia, hypovolemic hyponatremia, acute pain 2/2 infection, leukocytosis; hx non-Hodgkin 's lymphoma, carotid stenosis s/p subclavian and carotid bypass per H&P).
[2018-03-10] MEDS: CHOLECALCIFEROL VIT D3 2,000 UNITS TAB/CAP PO SCH (08:23)
[2018-03-10] MEDS: cefTRIAXone 2 GM in STERILE WATER INJ 20 ML IV SCH (08:23)
[2018-03-10] MEDS: OMEGA-3 FATTY ACIDS 1,000 MG CAP PO SCH (08:24)
[2018-03-10] MEDS: SENNOSIDES/DOCUSATE SODIUM TAB PO SCH ×2 (09:00→21:32)
--- NOTE | 2018-03-10 09:14 | HOSPPROG ---
Hospitalist Progress Note Assessment/Plan: Sepsis secondary to strep bacteremia - (HR, leukocytosis, nl lactate). Source likely SC joint infection. Had positive BCx's 02/27, but not treated other than Azithromycin course for presumed PNA. 03/09 BCx's again positive for strep. -cont ceftriaxone -ortho consulted, s/p joint aspiration- no orgs on GS, Cx pending -ID following H/O carotid stenosis - s/p subclavian and carotid bypass -hold plavix while awaiting surgical eval -cont ASA H/O TIA - ASA as above, holding plavix NHL - s/p chemo/XRT and stem cell transplant, followed by Dr. Freeman H/O prostate cancer - s/p prostatectomy Full code DVT PPLX - SCD's for now, LMWH if no surgery Dispo - cont inpt Subjective: Pt feels well. Not much pain. No cough, cp or SOB. No fevers overnight. EAting well. No complaints. Objective: Vital Signs Temp Pulse Resp BP Pulse Ox 36.9 C 95 15 135/85 H 94 03/10/18 07:29 03/10/18 07:29 03/10/18 07:29 03/10/18 07:29 03/10/18 07:29 Microbiology 03/09/18 19:10 Gram Stain - Final Shoulder - Aspirate Laboratory Results 03/10/18 03:36 03/10/18 03:36 03/09/18 03/10/18 03/11/18 05:59 05:59 05:59 Intake Total 2862 Output Total 875 Balance 1986 PT 16.1 SEC (12.0-15.0) H 03/09/18 22:57 INR 1.27 (0.83-1.16) H 03/09/18 22:57 - Physical Exam Constitutional: no apparent distress Eyes: PERRL Ears, Nose, Mouth, Throat: moist mucous membranes Cardiovascular: regular rate and rhythym Respiratory: no respiratory distress Gastrointestinal: normoactive bowel sounds, soft, non-tender abdomen Skin: other (right SC joint with surrounding erythema and warmth) Musculoskeletal: full muscle strength Neurologic: AAOx3 Psychiatric: interacting appropriately ICD10 Worksheet Patient Problems: Problems Problem Status Onset Septic arthritis Acute Carotid artery disease Acute Carotid stenosis, left Acute Transient cerebral ischemia Acute
[2018-03-10] MEDS: KETOROLAC 15 MG/1 ML SDV IVP PRN ×2 (13:24→20:19)
[2018-03-10] MEDS: ACETAMINOPHEN 325 MG TAB PO PRN (13:24)
--- NOTE | 2018-03-10 13:44 | ASMTCMCOM ---
CM Note CM Note Notes: 03/10/2018 Case Management Note Met pt during rounds this morning. Pt was admitted for an infected clavicle joint. Pt was recently treated with antibiotics for pneumonia. Pt ambulates without difficulty. No OT or PT evals are ordered at this time. There is a possiblity that pt will require correction iv antibiotic treatment and need home care and infusion services set up. Case management d/c poc: needs are to be determined. Case Management to follow. Date Signed: 03/10/2018 01:43 PM Electronically Signed By:Francisca Crockett RN
--- NOTE | 2018-03-10 15:25 | ECHO ---
[email or web address] [address] [address] Main: [phone] Fax: Transthoracic Echocardiogram Name: SVETLANA FRANZ MR#: [id number] Study Date: 03/10/2018 Study Time: 02:22 PM Date of : 1940 Age: 77 year(s) Height: 180.3 cm (71 in.) Weight: 63.5 kg (140 lb.) BSA: 1.81 m2 Gender: Male Examination: Echo Indication: Pneumococcal Bacteremia with new systolic murmur Image Quality: Contrast: Requested by: Zohreh Streeter BP: 135 mmHg/85 mmHg Heart Rate: Rhythm: Indication: Pneumococcal Bacteremia with new systolic murmur Procedure Staff Senior Environmental Engineer: Rickey Posadas RDCS Reading Physician: Jose Stratton MD Requesting Provider: Conclusions: No pericardial effusion. Preserved left ventricular systolic function. Ejection fraction 73%. Moderate tricuspid regurgitation with elevated right ventricular systolic pressure Measurements: Chambers Valvular Assessment AV/MV Valvular Assessment TV/PV Normal Normal Normal Name Value Range Name Value Range Name Value Range Ao Cece (MM): 2.8 cm (2.2 cm-3.7 AV Vmax: 1.21 m/s (1 m/s-1.7 TR Vmax: 3.53 mm/s ( - ) cm) m/s) TR PGmax: 50 mmHg ( - ) IVSd (2D): 0.7 cm (0.6 cm-1.1 AV maxP mmHg ( - ) syst. PAP: 60 mmHg ( - ) cm) LVOT Vmax: 0.89 m/s (0.7 m/s-1.1 PV Vmax: 0.98 m/s (0.6 m/s-0.9 LVDd (2D): 4.0 cm (4.2 cm-5.9 m/s) m/s) cm) MV E Vmax: 1.00 m/s ( - ) PV PGmax: 4 mmHg ( - ) LVDs (2D): 2.4 cm (2.1 cm-4 MV A Vmax: 0.96 m/s ( - ) cm) MV E/A: 1.04 ( - ) LVPWd (2D): 0.8 cm (0.6 cm-1 cm) LVEF (2D): 73 (>=54 %) Continued Measurements: Chambers Valvular Assessment AV/MV Valvular Assessment TV/PV Name Value Name Value Name Value LADs Lon.5 cm MV E' Septal: 0.06 m/s CVP (est.): 10 mmHg LA Area: 17.4 cm2 MV E/E' Septal: 16.60 MV E/E' Lateral: 15.30 MR Vena Contracta: 0.3 cm Patient: SVETLANA FRANZ Study Date: 03/10/2018 Page 1 of 2 02:22 PM Findings: Left Ventricle: Normal size left ventricle. No LV hypertrophy. Normal global systolic LV function. EF is 73 %. No regional wall motion abnormality. Diastolic dysfunction is present. . Right Ventricle: Normal size right ventricle. Normal RV function. Left Atrium: The left atrium is normal in size. Right Atrium: The right atrium is normal in size. Mitral Valve: Mild mitral valve leaflet calcification is present. Mild mitral valve regurgitation is present. Aortic Valve: The aortic valve is tri-leaflet. The aortic valve is normal in appearance and function. Tricuspid Valve: Moderate tricuspid regurgitation is present. The pulmonary artery pressure is mild to moderately increased. Pulmonic Valve: The pulmonic valve is normal in appearance and function. Aorta: The aorta is normal. Pericardium: No pericardial effusion. (No Signature Object) Patient: SVETLANA FRANZ Study Date: 03/10/2018 Page 2 of 2 02:22 PM [id number]
--- NOTE | 2018-03-10 15:27 | GCON ---
[f rep st] CONSULTATION INFECTIOUS DISEASE CONSULTATION DATE OF CONSULTATION: 03/10/2018 REFERRING PHYSICIAN: Nasra Ruiz MD REASON FOR CONSULTATION: Pneumococcal bacteremia. HISTORY OF PRESENT ILLNESS: A 77-year-old male with a past medical history of lymphoma, prostate can cer, carotid artery stenosis, who was in his usual state of health until the end of January when he dev eloped chills, fatigue, rhinorrhea and cough and subsequently developed high fevers to 103.6 x 4 days , presented to his primary care on February 27, describing coughing, chills, and underwent laboratory meliza luation where he was found to have a leukocytosis of 25,000. His blood cultures were also positive 2 sets for Streptococcus pneumoniae. Respiratory PCR at that time showed human metapneumovirus as wel l. The patient was prescribed at the time of the visit a Z-Akira and patient was called the following day when the blood cultures were positive and documented that patient refused admission, although he reports today he was unaware that his blood cultures were positive. The patient did subjectively fee l better on the azithromycin, stating that his cough was improved and his fever resolved. The patien t was reassessed on March 02 and had a mild improvement in his white count of 18,000. He continued to have a slight cough, hoarseness. He had an okay appetite but did not have a returned high fever. A bout a week ago, he developed right upper chest wall pain associated with his sternoclavicular joint and contacted his primary care yesterday and with ID consultation again, admission was recommended. Subsequently, patient came to the hospital where a repeat blood culture was obtained, which immediate ly grew Streptococcus pneumoniae. Respiratory PCR panel on admission was negative. He also underwen t aspiration of his right sternoclavicular joint with a negative Gram stain. Cultures are pending. The patient was started on ceftriaxone 2 g on admission and overnight he reports that he has a slight increase in his cough, but otherwise is about the same. He still has significant pain of his right sternoclavicular joint that is improved with Toradol. PAST MEDICAL HISTORY/PAST SURGICAL HISTORY: 1. Prostate cancer, status post radical prostatectomy. 2. Lymphoma diagnosed about 10 years ago. He underwent 2 stem cell transplants. The allo transplan t was subsequently successful, which was about 8 years ago. He is monitored twice annually by Dr. Ezequiel perkins. 3. Hypothyroidism. Patient with carotid artery stenosis and TIA, status post carotid endarterectomy . 4. Carries a diagnosis of peripheral vascular disease. 5. Insomnia since stem cell transplant, resolved with medical marijuana. ALLERGIES: Bactrim, oxycodone and Ativan. MEDICATIONS: Ceftriaxone 2 g IV daily, aspirin 81 mg daily, vitamin D 5000 units daily, Plavix 75 da orestes, Synthroid 50 mcg daily, fish oil 1000 mg daily. While hospitalized, he is also on Tylenol as ne eded, bisacodyl for constipation, Toradol for pain, lactulose for constipation, milk of magnesia for constipation, Zofran, oxycodone for moderate pain, MiraLAX for constipation and Senokot for constipat ion. 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 He has been in [place] for 25 y ears. He moved here due to more favorable weather. The patient's partner, Joey, he has been exclusi ve with for 28 years. His partner has HIV and is under treatment in our clinic. He has not traveled recently. Has no pets. He walks 3 miles a day. 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 His partner is an avid ga rdener. He does not drink any alcohol. He takes medical marijuana at night and no tobacco. FAMILY HISTORY: Positive for diabetes. REVIEW OF SYSTEMS: A complete 10-point review of systems was performed and is negative except as men tioned in the HPI. PHYSICAL EXAM: VITAL SIGNS: T-max 37.8, T-current 36.9, blood pressure 135/85, heart rate 95, respir atory rate 15, saturation 94% on 2 L. GENERAL: This is a trim, nontoxic-appearing male with fluent speech. No acute distress. HEENT: Pupils are reactive bilaterally. No conjunctival injection. No conjunctival hemorrhages. Oropharynx: Fair dentition. Moist mucous membranes. No oral thrush. NE CK: Supple. CARDIOVASCULAR: Regular rate with a 2-3 systolic murmur loudest at the left lower ster nal border. CHEST: Clear to auscultation bilaterally. No crackles or wheezes were appreciated. He had right sternoclavicular tenderness and surrounding erythema that was extending about 6 inches fro m the joint. No fluctuance was appreciated, no crepitus. ABDOMEN: Soft, nontender. He had a reduci ble midline hernia. Bowel sounds are present. EXTREMITIES: The patient had no other joint swelling. He had full range of motion, was ambulating without difficulty. SKIN: He had no splinter hemorrhag es. No Janeway lesions. No Osler's nodes. NEUROLOGIC: He is alert and oriented x4. Moving all 4 extremities equally. LABS: White count 18,000, slightly down from admission. Hematocrit 31, platelets of 586. CRP is 21 6. Creatinine 0.7, glucose 96. IMAGING: CT scan was personally reviewed by me and showed multiple indistinct opacities more promine nt in the lower lobes and some soft tissue swelling over the right neck and extending into the superi or mediastinum. No discrete abscess was identified. Echocardiogram was reviewed from 09/2017, which showed an ejection fraction of 65%-70%. No regional wall motion abnormalities and moderate mitral a nnular calcification with [id number] regurgitation, a normal aortic and tricuspid valve and nor mal PA pressures. Blood cultures 2 sets from 02/27/2018, shows shea susceptible pneumococcus. Blood cultures from 03/09/2018, 1 of 2, streptococcus pneumoniae, susceptibilities pending. On 03/09/2018, sternoclavicular joint aspiration, Gram stain negative, culture pending. Chest x-ray showed no focal infiltrate. ASSESSMENT AND PLAN: This is a very pleasant 77-year-old male with a history of lymphoma, who earlie r this month had respiratory symptoms and fever and diagnosed with pneumonia. Subsequently, jayna sanchezy found to have Streptococcus pneumonia bacteremia, which is still present on admission with new fi ndings of ongoing multilobar pneumonia, right chest wall cellulitis and sternoclavicular joint infect ion likely. Further, patient with a systolic murmur and known underlying valvular disease, which giv es some concern for endocarditis. I agree with IV ceftriaxone. Would repeat blood cultures after 48 hours of antibiotics, obtain an echocardiogram, screen for HIV, although very unlikely as patient car s not been sexually active for over 20 years. This testing was discussed with patient, and would jimmy sure immunoglobulin levels in light of patient's lymphoma as this would predispose patient to the com plication of pneumococcal pneumonia. Time was 75 minutes, greater than 50% of time spent with education and counseling of the items discus sed above. Thank you for this consultation. We will continue to follow on a daily basis. /[id number]/MODL
[2018-03-10 17:22] LABS: HIV TYPE 1 AND 2 NEGATIVE (NEGATIVE)
[2018-03-10] MEDS: ASPIRIN 81 MG CHEWABLE TAB PO SCH (20:19)
[2018-03-10] MEDS: LEVOTHYROXINE 50 MCG TAB PO SCH (20:19)
[2018-03-11 05:08] LABS: PLATELET COUNT 656 10^3/uL (150-400)
[2018-03-11] MEDS: KETOROLAC 15 MG/1 ML SDV IVP PRN ×2 (07:37→20:32)
[2018-03-11] MEDS: CHOLECALCIFEROL VIT D3 2,000 UNITS TAB/CAP PO SCH (07:46)
[2018-03-11] MEDS: OMEGA-3 FATTY ACIDS 1,000 MG CAP PO SCH (07:47)
[2018-03-11] MEDS: SENNOSIDES/DOCUSATE SODIUM TAB PO SCH ×2 (07:47→20:33)
[2018-03-11] MEDS: cefTRIAXone 2 GM in STERILE WATER INJ 20 ML IV SCH (09:55)
--- NOTE | 2018-03-11 11:31 | PCMIDPN ---
Assessment/Plan: # Pneumococcal bacteremia, multi lobar pneumonia and right sternoclavicular septic arthritis, clinically improving with decreasing erythema on the chest wall. White count improved to 15 today. Reviewed echocardiogram, new increased right atrial pressure is likely consistent with underlying pneumonia. --blood cultures were repeated this morning and will follow --HIV negative, immunoglobulins pending --plan IV antibiotics for at least 2 weeks in light of sternoclavicular involvement. Place PICC on Tuesday when blood cultures are negative --if persistent bacteremia will consider JASON Microbiology 03/09 blood cultures 2 sets pneumococcus 03/09 right sternoclavicular aspirate culture: No growth today 03/11 blood cultures 2 sets pending Medications Ceftriaxone 2 g IV daily, # 3 Subjective: Patient is feeling well no specific complaints. Less pain associated with right sternoclavicular area. No diarrhea, no rash. The patient's partner Joey was present throughout exam and history Objective: Vital Signs Temp Pulse Resp BP Pulse Ox 37.1 C 91 16 130/86 H 94 03/11/18 07:54 03/11/18 07:54 03/11/18 07:54 03/11/18 07:54 03/11/18 07:54 Microbiology 03/09/18 19:10 Gram Stain - Final Shoulder - Aspirate Laboratory Results 03/11/18 04:30 03/10/18 03:36 03/10/18 03/11/18 03/12/18 05:59 05:59 05:59 Intake Total 2862 Output Total 875 Balance 1987 C-Reactive Protein 240.4 mg/L (<10.0) H 03/11/18 04:30 - Physical Exam General Appearance: alert, no apparent distress Respiratory: lungs clear, No accessory muscle use Cardiac/Chest: regular rate, rhythm, systolic murmur (More faint than my exam yesterday), other (Erythema over right sternoclavicular joint less intense and has receded from lines drawn, area overlying joint still swollen) Extremities: No pedal edema Abdomen: non-tender, soft Skin: warm/dry, pallor, No rash Neuro/Psych: alert, normal mood/affect, oriented x 3 - Time Spent With Patient Time Spent with Patient: greater than 35 minutes (Reviewing the pathogenesis of pneumococcus, preceding viral illness and extent of disease. Also reviewed plan of treatment.) Time Spent with Patient: Greater than 35 minutes spent on this patients care, greater than 50% of time spent counseling, educating, and coordinating care regarding the above mentioned plan. ICD10 Worksheet Patient Problems: Problems Problem Status Onset Septic arthritis Acute Carotid artery disease Acute Carotid stenosis, left Acute Transient cerebral ischemia Acute
--- NOTE | 2018-03-11 13:11 | ASMTCMCOM ---
CM Note CM Note Notes: Pt is currently on IV ABX for PNA. It is unclear if pt will DC on IV ABX. CM to follow. Date Signed: 03/11/2018 01:10 PM Electronically Signed By:Meaghan Batista LCSW
--- NOTE | 2018-03-11 14:18 | SOAPPROG ---
SOAP Progress Note Assessment/Plan: Assessment: Right sternoclavicular joint effusion/pain that is improving Plan: Gram stain: still no organism seen. Cultures: pending. F/u Final cultures. Patient is continuing to improving in his symptoms Continue Antibiotics per Hospitalist & ID Conservative treatment: ice, pain medicine as needed Ortho stable Subjective: Pt states he has minimal pain in his right sternoclavicular joint. No pain with range of motion of his neck. He reports he is feeling better today. He denies any fever or chills. Objective: Vital Signs Temp Pulse Resp BP Pulse Ox 36.8 C 76 16 112/81 H 97 03/11/18 11:59 03/11/18 11:59 03/11/18 11:59 03/11/18 11:59 03/11/18 11:59 Microbiology 03/09/18 19:10 Gram Stain - Final Shoulder - Aspirate Laboratory Results 03/11/18 04:30 03/10/18 03:36 03/10/18 03/11/18 03/12/18 05:59 05:59 05:59 Intake Total 2862 400 Output Total 875 Balance 1987 400 PT 16.1 SEC (12.0-15.0) H 03/09/18 22:57 INR 1.27 (0.83-1.16) H 03/09/18 22:57 Physical exam of the right sternoclavicular joint: there is decreased swelling and the erythema is resolving. No tenderness to palpation. No pain with ROM of his neck. Normal sensation to light touch in the RUE. Distal pulse present in the RUE. ICD10 Worksheet Patient Problems: Problems Problem Status Onset Septic arthritis Acute Carotid artery disease Acute Carotid stenosis, left Acute Transient cerebral ischemia Acute
--- NOTE | 2018-03-11 15:00 | HOSPPROG ---
Hospitalist Progress Note Assessment/Plan: # Sepsis secondary to strep bacteremia - (tachycardia and leukocytosis) presumed Source pneumonia. Had positive BCx's 02/27, - 03/09 BCx positive for strep. -cont ceftriaxone -ortho consulted, s/p joint aspiration -if cultures remain negative PICC line 03/13 # SC joint infection - s/p aspiration by ortho -no orgs on GS, Cx pending - cont IV abx - ortho following- conservative management # H/O carotid stenosis - s/p subclavian and carotid bypass -restart plavix -cont ASA # H/O TIA - ASA and plavix #NHL - s/p chemo/XRT and stem cell transplant, followed by Dr. Freeman #H/O prostate cancer - s/p prostatectomy Full code DVT PPLX - Lovenox Dispo - > 2mN as requires ongoing IV antibiotics and monitoring I have discussed the case with the RN-will continue current care- surveillance cultures drawn today Subjective: little pain Objective: Vital Signs Temp Pulse Resp BP Pulse Ox 36.8 C 76 16 112/81 H 97 03/11/18 11:59 03/11/18 11:59 03/11/18 11:59 03/11/18 11:59 03/11/18 11:59 Microbiology 03/09/18 19:10 Gram Stain - Final Shoulder - Aspirate Laboratory Results 03/11/18 04:30 03/10/18 03:36 03/10/18 03/11/18 03/12/18 05:59 05:59 05:59 Intake Total 2862 400 Output Total 875 Balance 1987 400 PT 16.1 SEC (12.0-15.0) H 03/09/18 22:57 INR 1.27 (0.83-1.16) H 03/09/18 22:57 - Physical Exam Constitutional: no apparent distress Eyes: anicteric sclera Ears, Nose, Mouth, Throat: moist mucous membranes Cardiovascular: regular rate and rhythym Respiratory: no respiratory distress Genitourinary: no bladder fullness Skin: warm Musculoskeletal: No asymmetric calves Neurologic: AAOx3 Psychiatric: interacting appropriately Lymph, Heme, Immunologic: no cervical LAD ICD10 Worksheet Patient Problems: Problems Problem Status Onset Carotid artery disease Acute Carotid stenosis, left Acute Septic arthritis Acute Transient cerebral ischemia Acute chronic disease [facility]/transitional care Acute
[2018-03-11] MEDS: ENOXAPARIN 40 MG/0.4 ML SYR SC SCH (15:15)
[2018-03-11] MEDS: ACETAMINOPHEN 325 MG TAB PO PRN (15:21)
[2018-03-11] MEDS: LEVOTHYROXINE 50 MCG TAB PO SCH (20:32)
[2018-03-11] MEDS: CLOPIDOGREL BISULFATE 75 MG TAB PO SCH (20:33)
[2018-03-11] MEDS: ASPIRIN 81 MG CHEWABLE TAB PO SCH (20:33)
[2018-03-12] MEDS: KETOROLAC 15 MG/1 ML SDV IVP PRN (08:03)
[2018-03-12] MEDS: CHOLECALCIFEROL VIT D3 2,000 UNITS TAB/CAP PO SCH (08:06)
[2018-03-12] MEDS: OMEGA-3 FATTY ACIDS 1,000 MG CAP PO SCH (08:07)
[2018-03-12] MEDS: ENOXAPARIN 40 MG/0.4 ML SYR SC SCH ×2 (08:07→08:10)
[2018-03-12] MEDS ORDERED: ALTEPLASE 2 MG VIAL IVP PRN (09:38)
--- NOTE | 2018-03-12 09:38 | PCMIDPN ---
Assessment/Plan: # Pneumococcal bacteremia, multi lobar pneumonia and right sternoclavicular septic arthritis, clinically improving with decreasing erythema and pain on the chest wall but seems to have increased swelling today. White count improved to 12 today. --Reviewed echocardiogram, new increased right atrial pressure & worsening TR is likely consistent with underlying pneumonia. Dr Stratton will review TTE tomorrow to help assess if JASON warranted to eval for TV endocarditis --patient ambulatory, I stopped Lovenox --continue ceftriaxone, PICC tomorrow, patient desires infusion center & I wrote outpatient infusion center orders today --R-Sternoclavicular area still fairly swollen, check US Microbiology 03/09 blood cultures 2 sets pneumococcus 03/09 right sternoclavicular aspirate culture: No growth to date 03/11 blood cultures 2 sets NGTD Medications Ceftriaxone 2 g IV daily, # 4 Subjective: feeling better no further muscle aches Objective: Vital Signs Temp Pulse Resp BP Pulse Ox 36.6 C 91 15 120/89 H 94 03/12/18 07:46 03/12/18 07:46 03/12/18 07:46 03/12/18 07:46 03/12/18 07:46 Microbiology 03/09/18 19:10 Gram Stain - Final Shoulder - Aspirate Laboratory Results 03/12/18 04:17 03/10/18 03:36 03/11/18 03/12/18 03/13/18 05:59 05:59 05:59 Intake Total 2200 Output Total 1400 Balance 800 C-Reactive Protein 240.4 mg/L (<10.0) H 03/11/18 04:30 - Physical Exam General Appearance: alert, no apparent distress EENT: normal ENT inspection Respiratory: lungs clear, No accessory muscle use Neck: supple Cardiac/Chest: regular rate, rhythm, systolic murmur (very faint now), other (R chest wall very faint erythema remains, area over joint moderate swelling , query fluctuance, mild tenderness) Skin: No rash Neuro/Psych: alert, normal mood/affect, oriented x 3 - Time Spent With Patient Time Spent with Patient: greater than 35 minutes Time Spent with Patient: Greater than 35 minutes spent on this patients care, greater than 50% of time spent counseling, educating, and coordinating care regarding the above mentioned plan. ICD10 Worksheet Patient Problems: Problems Problem Status Onset Septic arthritis Acute Carotid artery disease Acute Carotid stenosis, left Acute Transient cerebral ischemia Acute
--- NOTE | 2018-03-12 09:48 | PDIAF ---
- Diagnosis Diagnosis: pneumococcal bacteremia, PNA & Septic R sternoclav joint Code Status: Full Code - Medication Management Discharge Medications: Medications to Continue on Transfer Levothyroxine [Synthroid 50 mcg (*)] 50 mcg PO HS 04/22/12 [Last Taken 03/08/18] Aspirin [Aspirin 81mg (*)] 81 mg PO HS 04/12/16 [Last Taken 03/08/18] Herbals/Supplements -Info Only 1 tab PO HS 04/12/16 [Last Taken 10/05/17 21:00] Cholecalciferol Vit D3 [Vitamin D3 (*)] 5,000 units PO DAILY 10/06/17 [Last Taken 03/09/18] [place]-3 Fatty Acids [Fish Oil 1000 mg (*)] 1,000 mg PO DAILY 10/06/17 [Last Taken 03/09/18] Clopidogrel Bisulfate [Plavix (*)] 75 mg PO HS 03/09/18 [Last Taken 03/08/18] oxyCODONE IR [Oxycodone Ir (*)] 10 mg PO Q6H PRN 03/09/18 [Last Taken 03/09/18 18:00] Prison Antibiotics: ceftriaxone 2gm IV daily 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 PICC Care - Routine: Yes - Labs/Radiology CBC w/diff Date: 03/20/18 CMP Date: 03/20/18 CRP Date: 03/20/18 Call or Fax Lab and Imaging Results to: [facility] [phone] - Follow Up Care Current Providers and Referrals: Theresa Gutierrez MD [Primary Care Provider] - As per Instructions Zohreh Streeter MD [Medical Doctor] - follow up in 1 week
[2018-03-12] MEDS: cefTRIAXone 2 GM in STERILE WATER INJ 20 ML IV SCH (09:53)
--- NOTE | 2018-03-12 10:15 | ASMTCMCOM ---
CM Note CM Note Notes: Pt will need IV ceftriaxone, 2gm, through March 24. Pt chose to go to [facility] [place]. He has been set up for daily infusions at 200. Instructions and directions provided. Date Signed: 03/12/2018 10:14 AM Electronically Signed By:Meaghan Batista LCSW
[2018-03-12] MEDS: SENNOSIDES/DOCUSATE SODIUM TAB PO SCH ×2 (10:57→21:02)
--- NOTE | 2018-03-12 13:03 | HOSPPROG ---
Hospitalist Progress Note Assessment/Plan: # Sepsis secondary to strep bacteremia - (tachycardia and leukocytosis) presumed Source pneumonia. Had positive BCx's 02/27, - 03/09 BCx positive for strep. -cont ceftriaxone - ortho consulted, s/p joint aspiration - if cultures remain negative PICC line 03/13 # SC joint infection - s/p aspiration by ortho -no orgs on GS, Cx pending - ID ordered repeat US today - cont IV abx - ortho following- conservative management # H/O carotid stenosis - s/p subclavian and carotid bypass -restart plavix -cont ASA # H/O TIA - ASA and plavix # NHL - s/p chemo/XRT and stem cell transplant, followed by Dr. Freeman # H/O prostate cancer - s/p prostatectomy Full code DVT PPLX - Lovenox Dispo - > 2MN as requires ongoing IV antibiotics and monitoring I have discussed the case with ID - we will place PICC tomorrow if cultures remain negative Subjective: feeling well Objective: Vital Signs Temp Pulse Resp BP Pulse Ox 37.1 C 78 16 137/96 H 99 03/12/18 11:31 03/12/18 11:31 03/12/18 11:31 03/12/18 11:31 03/12/18 11:31 Microbiology 03/09/18 19:10 Gram Stain - Final Shoulder - Aspirate Laboratory Results 03/12/18 04:17 03/10/18 03:36 03/11/18 03/12/18 03/13/18 05:59 05:59 05:59 Intake Total 2200 400 Output Total 1400 Balance 800 400 PT 16.1 SEC (12.0-15.0) H 03/09/18 22:57 INR 1.27 (0.83-1.16) H 03/09/18 22:57 - Physical Exam Constitutional: no apparent distress Eyes: anicteric sclera Ears, Nose, Mouth, Throat: moist mucous membranes Cardiovascular: regular rate and rhythym Respiratory: no respiratory distress Gastrointestinal: normoactive bowel sounds Genitourinary: no bladder fullness Skin: warm, other (sternal erythema is stable query if more edema) Musculoskeletal: No asymmetric calves Neurologic: AAOx3 Psychiatric: interacting appropriately Lymph, Heme, Immunologic: no cervical LAD ICD10 Worksheet Patient Problems: Problems Problem Status Onset Septic arthritis Acute Carotid artery disease Acute Carotid stenosis, left Acute Transient cerebral ischemia Acute
--- NOTE | 2018-03-12 13:13 | SOAPPROG ---
SOAP Progress Note Assessment/Plan: Assessment: Right sternoclavicular joint effusion/pain that is improving Plan: Gram stain: still no organism seen. Cultures: pending. F/u Final cultures. US of the right sternoclavicular region was done today. Patient is continuing to improving in his symptoms Continue Antibiotics per Hospitalist & ID Conservative treatment: ice, pain medicine as needed Ortho stable Subjective: Pt states his right sternoclavicular joint is feeling better today. No pain with range of motion of his neck. He denies any fever or chills. Objective: Vital Signs Temp Pulse Resp BP Pulse Ox 37.1 C 78 16 137/96 H 99 03/12/18 11:31 03/12/18 11:31 03/12/18 11:31 03/12/18 11:31 03/12/18 11:31 Microbiology 03/09/18 19:10 Gram Stain - Final Shoulder - Aspirate Laboratory Results 03/12/18 04:17 03/10/18 03:36 03/11/18 03/12/18 03/13/18 05:59 05:59 05:59 Intake Total 2200 400 Output Total 1400 Balance 800 400 PT 16.1 SEC (12.0-15.0) H 03/09/18 22:57 INR 1.27 (0.83-1.16) H 03/09/18 22:57 Physical exam of the right sternoclavicular joint: there is decreased erythema. Swelling is present over the joint. No pain with ROM of his neck. Normal sensation to light touch in the RUE. Distal pulse present in the RUE. ICD10 Worksheet Patient Problems: Problems Problem Status Onset Septic arthritis Acute Carotid artery disease Acute Carotid stenosis, left Acute Transient cerebral ischemia Acute
[2018-03-12] MEDS: ASPIRIN 81 MG CHEWABLE TAB PO SCH (20:59)
[2018-03-12] MEDS: LEVOTHYROXINE 50 MCG TAB PO SCH (20:59)
[2018-03-12] MEDS: CLOPIDOGREL BISULFATE 75 MG TAB PO SCH (20:59)
[2018-03-12] MEDS: ACETAMINOPHEN 325 MG TAB PO PRN (21:00)
[2018-03-13] MEDS: ACETAMINOPHEN 325 MG TAB PO PRN (06:38)
[2018-03-13 07:33] VITALS: BP 128/94
[2018-03-13] MEDS: cefTRIAXone 2 GM in STERILE WATER INJ 20 ML IV SCH (09:37)
[2018-03-13] MEDS: OMEGA-3 FATTY ACIDS 1,000 MG CAP PO SCH (09:37)
[2018-03-13] MEDS: SENNOSIDES/DOCUSATE SODIUM TAB PO SCH (09:37)
[2018-03-13] MEDS: CHOLECALCIFEROL VIT D3 2,000 UNITS TAB/CAP PO SCH (09:37)
--- NOTE | 2018-03-13 11:46 | PDIAF ---
- Diagnosis Diagnosis: pneumococcal bacteremia, PNA & Septic R sternoclav joint Code Status: Full Code - Medication Management Discharge Medications: Medications to Continue on Transfer Levothyroxine [Synthroid 50 mcg (*)] 50 mcg PO HS 04/22/12 [Last Taken 03/08/18] Aspirin [Aspirin 81mg (*)] 81 mg PO HS 04/12/16 [Last Taken 03/08/18] Herbals/Supplements -Info Only 1 tab PO HS 04/12/16 [Last Taken 10/05/17 21:00] Cholecalciferol Vit D3 [Vitamin D3 (*)] 5,000 units PO DAILY 10/06/17 [Last Taken 03/09/18] [place]-3 Fatty Acids [Fish Oil 1000 mg (*)] 1,000 mg PO DAILY 10/06/17 [Last Taken 03/09/18] Clopidogrel Bisulfate [Plavix (*)] 75 mg PO HS 03/09/18 [Last Taken 03/08/18] oxyCODONE IR [Oxycodone Ir (*)] 10 mg PO Q6H PRN 03/09/18 [Last Taken 03/09/18 18:00] Acetaminophen [Tylenol 325mg (*)] 650 mg PO Q4HRS PRN tab 03/13/18 [Last Taken Unknown] cefTRIAXone [Rocephin] 2 gm IV DAILY vial 03/13/18 [Last Taken Unknown] [employer] Antibiotics: ceftriaxone 2gm IV daily Group Home Antibiotic Stop Date: 03/24/18 Discharge Medications: Refer to the Discharge Home Medication list for PRN reason. PICC Care - Routine: Yes - Orders Diet Recommendation: no restrictions on diet Diet Texture: Regular Texture Diet - Labs/Radiology CBC w/diff Date: 03/20/18 CMP Date: 03/20/18 CRP Date: 03/20/18 Call or Fax Lab and Imaging Results to: [facility] [phone] - Follow Up Care Current Providers and Referrals: Theresa Gutierrez MD [Primary Care Provider] - As per Instructions Zohreh Streeter MD [Medical Doctor] - follow up in 1 week
--- NOTE | 2018-03-13 12:24 | SOAPPROG ---
SOAP Progress Note Assessment/Plan: Assessment: Right sternoclavicular joint effusion/pain that is improving Plan: PICC placed in the RUE. Gram stain: still no organism seen. Cultures: pending, no growth after 72 hrs. US of the right sternoclavicular region was done today. Patient is continuing to improving in his symptoms Continue Antibiotics per Hospitalist & ID Conservative treatment: ice, pain medicine as needed Ortho stable Patient is being discharged today Subjective: Pt states his right sternoclavicular joint is feeling better. He had a PICC line placed in his RUE today and will be discharged today. Objective: Vital Signs Temp Pulse Resp BP Pulse Ox 36.8 C 84 16 128/94 H 96 03/13/18 07:32 03/13/18 07:32 03/13/18 07:32 03/13/18 07:32 03/13/18 07:32 Microbiology 03/09/18 19:10 Gram Stain - Final Shoulder - Aspirate Laboratory Results 03/12/18 04:17 03/10/18 03:36 03/12/18 03/13/18 03/14/18 05:59 05:59 05:59 Intake Total 2200 900 20 Output Total 1400 Balance 800 900 20 PT 16.1 SEC (12.0-15.0) H 03/09/18 22:57 INR 1.27 (0.83-1.16) H 03/09/18 22:57 Physical exam of the right sternoclavicular joint: decreased erythema over the joint. Swelling still present over the joint, minimal pain to palpation palpation. Normal sensation to light touch in the RUE. Distal pulse present to the RUE. ICD10 Worksheet Patient Problems: Problems Problem Status Onset Septic arthritis Acute chronic disease [facility]/transitional care Acute Carotid artery disease Acute Carotid stenosis, left Acute Transient cerebral ischemia Acute
--- NOTE | 2018-03-13 13:29 | PCMIDPN ---
Assessment/Plan: Assessment: Streptococcus pneumoniae bacteremia in setting of right sternoclavicular joint septic arthritis. No growth from the aspirated joint fluid but in the circumstance of bacteremia the presentation is clinically diagnostic. Will continue his IV ceftriaxone daily through the infusion center for 2 weeks from clearance of cultures. Will have to follow the appearance of the sternoclavicular joint during this therapy to see if 2 weeks is adequate. Follow-up in office in approximately 1 week. Plan: 1. Continue IV ceftriaxone at present dose. Orders are submitted for infusion therapy as an outpatient. 2. Follow up in clinic in 1 week. 03/13/18 13:27 Subjective: Patient is walking the halls. He denies any fevers or chills. Patient states that his redness and swelling on his right chest is significantly reduced. The pain is nearly gone. Objective: Ceftriaxone # 4 Vital Signs Temp Pulse Resp BP Pulse Ox 36.8 C 84 16 128/94 H 96 03/13/18 07:32 03/13/18 07:32 03/13/18 07:32 03/13/18 07:32 03/13/18 07:32 Microbiology 03/09/18 19:10 Gram Stain - Final Shoulder - Aspirate Laboratory Results 03/12/18 04:17 03/10/18 03:36 03/12/18 03/13/18 03/14/18 05:59 05:59 05:59 Intake Total 2200 900 20 Output Total 1400 Balance 800 900 20 C-Reactive Protein 240.4 mg/L (<10.0) H 03/11/18 04:30 - Physical Exam General Appearance: WD/WN, alert, no apparent distress, non-toxic Respiratory: lungs clear, normal breath sounds, No respiratory distress Cardiac/Chest: regular rate, rhythm, No tachycardia Skin: normal color, warm/dry, No rash Neuro/Psych: alert, normal mood/affect, oriented x 3 ICD10 Worksheet Patient Problems: Problems Problem Status Onset Septic arthritis Acute chronic disease mgmt/transitional care Acute Carotid artery disease Acute Carotid stenosis, left Acute Transient cerebral ischemia Acute
--- NOTE | 2018-03-13 16:57 | ASDISCHSUM ---
Discharge Information Plan Status:IV ABX/Infusion Medically Cleared to Leave: Discharge Date:03/13/2018 01:21 PM CM D/C Disposition: ADT D/C Disposition:Home, Routine, Self-Care Projected Discharge Date:03/13/2018 11:00 AM Transportation at D/C: Discharge Delay Reason: Follow-Up Date:03/13/2018 11:00 AM Discharge Slot: Final Diagnosis: Placement Information Referral Type:Home Infusion Referral ID:[id number] Provider Name: Address 1: Phone Number: Address 2: Fax Number: City: Selection Factors: State: Patient Contact Information Contact Name:AVIS Relationship:Life Partner Address:[address] [place] [address] City:[facility] Phone: State/Zip Code:[place] [address] Email: Financial Information Financial Class:Medicare Primary Plan Desc:MEDICARE INPATIENT Primary Plan Number:[id number] Secondary Plan Desc:[employer] Secondary Plan Number:[id number] Assessment Information [facility] CM Progress Note CM Note CM Note Notes: 03/10/2018 Case Management Note Met pt during rounds this morning. Pt was admitted for an infected clavicle joint. Pt was recently treated with antibiotics for pneumonia. Pt ambulates without difficulty. No OT or PT evals are ordered at this time. 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 Case management d/c poc: needs are to be determined. Case Management to follow. Date Signed: 03/10/2018 01:43 PM Electronically Signed By:Francisca Crockett RN [facility] CM Progress Note CM Note CM Note Notes: Pt is currently on IV ABX for PNA. It is unclear if pt will DC on IV ABX. CM to follow. Date Signed: 03/11/2018 01:10 PM Electronically Signed By:Meaghan Batista LCSW [facility] CM Progress Note CM Note CM Note Notes: Pt will need IV ceftriaxone, 2gm, through March 24. Pt chose to go to [facility]. He has been set up for daily infusions at 200. Instructions and directions provided. Date Signed: 03/12/2018 10:14 AM Electronically Signed By:Meaghan Batista LCSW [facility] [place] Progress Note CM Note CM Note Notes: Pt medically stable for d/c with infusions at [facility]. Date Signed: 03/13/2018 04:56 PM Electronically Signed By:TYLER Mccormick Intervention Information Intervention Type:*IM-Signed Date of Service:03/13/2018 12:28 PM Patient Type:Inpatient Staff Member:Julissa Garcia Hours: Discipline: Severity: Comment:
--- NOTE | 2018-03-13 16:57 | ASMTCMCOM ---
CM Note CM Note Notes: Pt medically stable for d/c with infusions at infusion center. Date Signed: 03/13/2018 04:56 PM Electronically Signed By:TYLER Mccormick
--- NOTE | 2018-03-13 16:59 | GDS ---
[f rep st] DISCHARGE SUMMARY DISCHARGE DIAGNOSES: Include: 1. Acute streptococcus bacteremia, presumed secondary to pneumonia. 2. Sternoclavicular inflammation. 3. History of carotid vascular disease. HISTORY OF PRESENT ILLNESS: A 77-year-old male who presents with elevated white count, feeling ill. For details of patient's initial presentation, please see the History and Physical dated 03/09/2018. CONSULTATIVE SERVICES: Infectious Disease. PROCEDURES: Patient underwent aspiration of his sternoclavicular joint. HOSPITAL COURSE BY ISSUE: 1. Streptococcus group GC bacteremia. The patient had a pneumonia in the outpatient setting with castañeda bsequent positive blood cultures. Suspect the source of his bacteremia is from his initial pneumonia . He was initiated on IV antibiotics, IV ceftriaxone, and has cleared his surveillance cultures on t of disposition. He had a PICC line placed on 03/13/2018, and will complete 2 weeks of IV anti biotics in the outpatient setting. 2. Sternoclavicular inflammation. The patient was seen by Orthopedic Surgery, did have this joint a spirated with negative cultures. Did not undergo additional surgical debridement or I and D. He silver l be followed by the infectious disease specialist in the outpatient setting. 3. History of carotid vascular disease. Patient was continued on his home antiplatelet agents at [facility]. MEDICATIONS AT THE TIME OF TRANSFER: Please reference the med rec printed on 03/13/2018. APPOINTMENTS: 1. Include with Dr. Streeter from Infectious Disease in 1 week. 2. Ongoing monitoring by outpatient provider, PCP for long-term management of his strep bacteremia a nd medical co-morbidities. I spent greater than 30 minutes in the planning and coordination of this discharge. /[id number]/MODL
--- NOTE | 2018-03-16 15:44 | PQFORM ---
PHYSICIAN QUERY FORM Needs Your Response This query form is being sent to you to assure this patient record is coded properly. Please respond to the question below: PRODUCTION SHIFT SUPERVISOR QUESTION: Dr Harper Sepsis was documented throughout the chart but not on the Discharge Summary. Did this patient have Sepsis? __x_ Yes ___ No ___ Other (Please Specify ) ___ Unable to Determine Thank You Regina MCCLELLAND Parent Aide INSTRUCTIONS FOR RESPONSE: Answer question by clicking on the "Edit Document" button. Move cursor to area below the stars. When complete, hit "Save." Click on the "Sign" button, then click "Sign" again. Type in your PIN and hit "Enter." MTDD
--- NOTE | 2018-03-16 15:47 | PQFORM ---
PHYSICIAN QUERY FORM Needs Your Response This query form is being sent to you to assure this patient record is coded properly. Please respond to the question below: COIN MACHINE ASSEMBLER QUESTION: Progress Notes document a Right Sternoclavicular Septic Arthritis but is not not mentioned in the Discharge Summary Did this patient have Septic Arthritis ? ___ Yes ___ No ___ Other (Please specify ) ___ Unable to Determine Thank You Regina MCCLELLAND Candy Mixer INSTRUCTIONS FOR RESPONSE: Answer question by clicking on the "Edit Document" button. Move cursor to area below the stars. When complete, hit "Save." Click on the "Sign" button, then click "Sign" again. Type in your PIN and hit "Enter." MTDD
== END 2018-03-13 13:21 | disposition home or self-care (01) | DRG 871 ==
LOC: OBSVTOIN 18:53 → F2W 21:15 → F3N 03-10 17:17
PROVIDERS: ADMIT Internal Medicine; ATTEND Hospitalist
PROC: 0R9E3ZX Drainage of Right Sternoclavicular Joint, Percutaneous Approach, Diagnostic (ICD-10-PCS; 2018-03-09)
PROC: 02HV33Z Insertion of Infusion Device into Superior Vena Cava, Percutaneous Approach (ICD-10-PCS; principal; 2018-03-13)
DX: A40.3 Sepsis due to Streptococcus pneumoniae (principal); J13 Pneumonia due to Streptococcus pneumoniae; M00.1 Pneumococcal arthritis and polyarthritis; E87.1 Hypo-osmolality and hyponatremia; C85.90 Non-Hodgkin lymphoma, unspecified, unspecified site; E03.9 Hypothyroidism, unspecified; I73.9 Peripheral vascular disease, unspecified; I65.22 Occlusion and stenosis of left carotid artery; I10 Essential (primary) hypertension; Z86.73 Personal history of transient ischemic attack (TIA), and cerebral infarction without residual deficits; Z85.46 Personal history of malignant neoplasm of prostate
CPT/HCPCS: 82784-90; C1751; J0696; J1650; J1885; Q9967

== ENCOUNTER → 2018-03-24 | Outpatient (CLI) | payer OTHER, BC | LOC: BHFA 10:30 | PROVIDERS: ATTEND Internal Medicine Cardiovascular Disease | DX: G45.9 Transient cerebral ischemic attack, unspecified (principal) ==

== ENCOUNTER → 2018-03-31 | Outpatient (CLI) | payer OTHER, BC ==
[~2018-03-31] MED LIST changes: +GADOBUTROL 10 ML VIAL IVP ONE; -IOPAMIDOL (ISOVUE-300) 100 ML BTL ONE
== END ==
LOC: FIMAGING 06:17
PROVIDERS: ATTEND Internal Medicine Infectious Disease
DX: J18.9 Pneumonia, unspecified organism (principal); M00.1 Pneumococcal arthritis and polyarthritis; R78.81 Bacteremia; M25.48 Effusion, other site; M86.8X1 Other osteomyelitis, shoulder; M86.8X8 Other osteomyelitis, other site
CPT/HCPCS: 71552; A9585

== ENCOUNTER → 2018-05-24 | Outpatient (CLI) | payer OTHER, BC | LOC: BMCIMAGING 08:55 | PROVIDERS: ATTEND Orthopaedic Surgery | DX: Z09 Encounter for follow-up examination after completed treatment for conditions other than malignant neoplasm (principal); M00.111 Pneumococcal arthritis, right shoulder ==

== ENCOUNTER → 2018-06-21 | Outpatient (CLI) | payer OTHER, BC | LOC: FIMAGING 16:09 | PROVIDERS: ATTEND Internal Medicine Infectious Disease | DX: R05 Cough (principal) ==

== ENCOUNTER → 2018-08-19 | Outpatient (CLI) | payer OTHER, BC | LOC: FIMAGING 10:34 | PROVIDERS: ATTEND Internal Medicine | DX: R05 Cough (principal); Z87.01 Personal history of pneumonia (recurrent); Z85.72 Personal history of non-Hodgkin lymphomas ==

== ENCOUNTER → 2018-11-29 | Outpatient (CLI) | payer OTHER, BC | LOC: FIMAGING 10:48 | PROVIDERS: ATTEND Internal Medicine Hematology & Oncology | DX: Z13.89 Encounter for screening for other disorder (principal); Z85.72 Personal history of non-Hodgkin lymphomas ==

== ENCOUNTER → 2019-02-20 | Outpatient (CLI) | payer OTHER, BC ==
[~2019-02-20] MED LIST changes: -GADOBUTROL 10 ML VIAL IVP ONE; +IOPAMIDOL (ISOVUE-300) 100 ML BTL ONE
== END ==
LOC: FIMAGING 09:42
PROVIDERS: ATTEND Physician Assistant Medical
DX: N32.9 Bladder disorder, unspecified (principal); R16.0 Hepatomegaly, not elsewhere classified; K80.20 Calculus of gallbladder without cholecystitis without obstruction; Z85.49 Personal history of malignant neoplasm of other male genital organs
CPT/HCPCS: 74178; Q9967; 82565-PO

== ENCOUNTER 2019-02-24 11:19 | Observation (INO) | payer OTHER, BC | END 2019-02-25 13:25 | disposition home or self-care (01) | LOC: F1N 16:08 ==

== ENCOUNTER 2019-03-23 06:23 | Day surgery (SDC) | payer OTHER, BC ==
[~2019-03-23 06:23] MED LIST changes: -IOPAMIDOL (ISOVUE-300) 100 ML BTL ONE; +cefOXitin SODIUM 2 GM in NS 100 ML IV ONE
[2019-03-23] MEDS ORDERED: LR 1,000 ML IV ONE (06:56)
[2019-03-23] MEDS ORDERED: ceFAZolin 1 GM/5 ML SYR ONE (07:04)
[2019-03-23] MEDS ORDERED: BUPIVACAINE 0.5% 30 ML SDV ONE (07:04)
[2019-03-23] MEDS ORDERED: HEPARIN 1000 UNIT/1 ML MDV ONE (07:04)
--- NOTE | 2019-03-23 07:05 | PDHPUP ---
History & Physical Update H&P update statement: This history and physical update is based on an assessment of the patient which was completed after admission or registration (within 24 hours), but prior to the surgery/procedure. H&P update: H&P reviewed & patient examined, no change in patient's condition since H&P completed
[2019-03-23] MEDS ORDERED: MIDAZOLAM 2 MG/2 ML VIAL ONE (07:41)
[2019-03-23] MEDS ORDERED: fentaNYL 100 MCG/2 ML INJ ONE (07:42)
[2019-03-23] MEDS ORDERED: PROPOFOL 200 MG/20 ML VIAL ONE (07:43)
[2019-03-23] MEDS ORDERED: ROCURONIUM 50 MG/5 ML VIAL ONE (07:55)
[2019-03-23] MEDS ORDERED: ONDANSETRON 4 MG/2 ML VIAL ONE (07:55)
[2019-03-23] MEDS ORDERED: METOCLOPRAMIDE 10 MG/2 ML VIAL ONE (07:55)
--- NOTE | 2019-03-23 08:07 | PDANEPAE ---
ANE Past Medical History - Cardiovascular History Hx Hypertension: No Hx Arrhythmias: No Hx Chest Pain: No Hx Coronary Artery / Peripheral Vascular Disease: Yes Hx CHF / Valvular Disease: No Hx Palpitations: No - Pulmonary History Hx COPD: No Hx Asthma/Reactive Airway Disease: No Hx Recent Upper Respiratory Infection: No Hx Oxygen in Use at Home: No Hx Sleep Apnea: No Sleep Apnea Screening Result - Last Documented: Negative - Neurologic History Hx Cerebrovascular Accident: No Hx Seizures: No Hx Dementia: No - Endocrine History Hx Diabetes: No Endocrine History Comment: hypothyroidism - Renal History Hx Renal Disorders: Yes Renal History Comment: scar tissue removal at base of bladder with Velasquez . hx of prostate cancer - Liver History Hx Hepatic Disorders: No - Neurological & Psychiatric Hx Hx Neurological and Psychiatric Disorders: No Neurological / Psychiatric History Comment: INSOMNIA - Cancer History Hx Cancer: Yes Cancer History Comment: PROSTATE CANCER WITH RADIATION. 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 04/13/16 LEFT CEA with Vicente. 08/13/16 removal of hardened glue from CEA surgery with Vicente. PROSTATECTOMY 15 yrs ago ANE Review of Systems Review of Systems: - Exercise capacity METS (RN): 4 METS ANE Patient History - Allergies Allergies/Adverse Reactions: lorazepam [From Ativan] Allergy (Verified 03/16/19 11:51) Loss of consciousness, vomiting oxycodone Allergy (Verified 03/16/19 11:51) Loss of consciousness, vomiting sulfamethoxazole [From Bactrim] Allergy (Verified 03/16/19 11:51) Loss of consciousness, vomiting trimethoprim [From Bactrim] Allergy (Verified 03/16/19 11:51) Loss of consciousness, vomiting - Home Medications Home Medications: Atorvastatin Calcium [Lipitor 40 mg (*)] HS 02/24/19 [Last Taken 03/22/19] Clopidogrel Bisulfate [Clopidogrel] DAILY 02/24/19 [Last Taken 03/16/19] Levothyroxine Sodium HS 02/24/19 [Last Taken 03/22/19] Aspirin 81mg (*) 03/16/19 [Last Taken 03/22/19] Fish Oil 1,000 mg Softgel 03/16/19 [Last Taken 03/16/19] Nitrofurantoin 03/16/19 [Last Taken 03/22/19] - NPO status NPO Since - Liquids (Date): 03/22/19 NPO Since - Liquids (Time): 19:00 NPO Since - Solids (Date): 03/22/19 NPO Since - Solids (Time): 19:00 - Smoking Hx Smoking Status: Never smoked - Family Anes Hx Family Hx Anesthesia Complications: none ANE Labs/Vital Signs - Vital Signs Blood Pressure: 161/90 Heart Rate: 61 Respiratory Rate: 16 O2 Sat (%): 99 Height: 180.34 cm Weight: 61.235 kg ANE Physical Exam - Airway Mallampati Score: Class 1 - ASA Status ASA Status: III ANE Anesthesia Plan Anesthesia Plan: general endotracheal anesthesia Urgent/Emergent Case: Nisha bess completed preop but documented later for safe timely pt care
[2019-03-23] MEDS ORDERED: SUGAMMADEX SODIUM 200 MG/2 ML VIAL IVP ONE (08:31)
[2019-03-23] MEDS ORDERED: NALOXONE HCL 0.4 MG/ML INJ IVP PRN (09:00)
[2019-03-23] MEDS ORDERED: LR 500 ML IV PRN (09:00)
[2019-03-23] MEDS ORDERED: ONDANSETRON 4 MG/2 ML VIAL IVP PRN (09:00)
[2019-03-23] MEDS ORDERED: fentaNYL 100 MCG/2 ML INJ IVP PRN (09:00)
--- NOTE | 2019-03-23 09:02 | POSTANESTH ---
Post Anesthetic Evaluation Cardiovascular Status: Similar to Pre-Op Cond Respiratory Status: Normal, Stable Level of Consciousness/Mental Status: Can Participate in Eval Pain Control: Adequate, Prn Tx Ordered Nausea/Vomiting Control: Adequate, Prn Tx Ordered Complications Possibly Related to Anesthesia: None Noted
--- NOTE | 2019-03-23 10:19 | POSTOPPROG ---
Post Op Note Date of Operation: 03/23/19 Surgeon: Jim Zhang Conference Coordinator: Ehsan Anesthesiologist: Shruti Anesthesia: GET(General Endotracheal) Pre-op Diagnosis: Cholelithasis, umbilical hernia Post-op Diagnosis: same Indication: same Procedure: Lap magnolia, umbilical hernia repair Findings: Small umbilical defect Inf/Abcess present in the surg proc area at time of surgery?: No Depth: Organ Space EBL: Minimal Specimen(s): Gallbladder - permanent
[2019-03-23 10:35] VITALS: BP 145/95
--- NOTE | 2019-03-26 01:29 | GOP ---
[f rep st] OPERATIVE REPORT DATE OF OPERATION: 03/23/2019 SURGEON: Jim Zhang MD PROPAGATION WORKER: Laura Moser NP. PREOPERATIVE DIAGNOSIS: 1. Symptomatic gallstones. 2. Umbilical hernia. POSTOPERATIVE DIAGNOSIS: 1. Symptomatic gallstones. 2. Umbilical hernia. PROCEDURE PERFORMED: 1. Laparoscopic cholecystectomy. 2. Open umbilical hernia repair. FINDINGS: The patient was found to have a 1.5 cm umbilical defect with some properitoneal fat. Had multiple stones and a dilated gallbladder with some adhesions to the gallbladder. DESCRIPTION OF PROCEDURE: Patient taken to the operating room where he received satisfactory general endotracheal anesthesia. He was placed in a supine position, prepped and draped in the usual steril e fashion. An infraumbilical incision was made. Dissection was carried down to the fascia. The umb ilical hernia sac was dissected free off the back of the umbilical skin. The Veress needle was then passed through the umbilical defect, and the pneumoperitoneum was established. The trocar was introd uced, laparoscope introduced, good visualization was obtained. Three other trocars were placed in th e upper abdomen under direct vision, the gallbladder was elevated up, adhesions were taken down until the entire gallbladder and cystic triangle could be readily exposed. The cystic duct was dissected free as was the cystic artery with care to avoid injury to the common bile duct, which was clearly vi sualized. Both structures were multiply hemoclipped and divided with care to avoid injury to the com mon bile duct. The peritoneum of the gallbladder was then incised, and the gallbladder was dissected free from the bed and hepatic fossa, and extracted through the umbilical port site. Hemostasis was assuredly obtained, and the wound was irrigated. Trocars were removed under direct vision. Trocar s ites were closed with 0 Vicryl for the fascia and 4-0 Monocryl subcuticular stitch for the skin. All layers infiltrated with 0.5% Marcaine. Attention was turned to the umbilical site. The umbilical h ernia sac was dissected off at the fascial level. Its contents were reduced, and the defect was then closed in a [id number] 2-layer fashion with 0 Ethibond mattress sutures. Wounds were all infil trated with 0.5% Marcaine, subcu was closed with 3-0 Vicryl, and the skin with a 4-0 Monocryl subcuti cular stitch. He tolerated the procedure well, was taken to recovery room in good condition. No com plications. Blood loss negligible. /[id number]/MODL
== END 2019-03-23 10:55 | disposition home or self-care (01) ==
LOC: FSGY 06:23
PROVIDERS: ATTEND Surgery
PROC: 0FT44ZZ Resection of Gallbladder, Percutaneous Endoscopic Approach (ICD-10-PCS; principal; 2019-03-23 08:00)
PROC: 0WQF0ZZ Repair Abdominal Wall, Open Approach (ICD-10-PCS; principal; 2019-03-23 08:00)
DX: K80.20 Calculus of gallbladder without cholecystitis without obstruction (principal); K42.9 Umbilical hernia without obstruction or gangrene; I77.9 Disorder of arteries and arterioles, unspecified; E78.5 Hyperlipidemia, unspecified; Z91.81 History of falling; E03.9 Hypothyroidism, unspecified; G62.0 Drug-induced polyneuropathy; T45.1X5S Adverse effect of antineoplastic and immunosuppressive drugs, sequela; Z85.71 Personal history of Hodgkin lymphoma; Z85.46 Personal history of malignant neoplasm of prostate; Z86.73 Personal history of transient ischemic attack (TIA), and cerebral infarction without residual deficits
CPT/HCPCS: J0694; J2250; J2405; J2704; J2765; J3010

== ENCOUNTER → 2019-04-05 | Outpatient (CLI) | payer OTHER, BC | LOC: FIMAGING 14:27 | PROVIDERS: ATTEND Internal Medicine | DX: R05 Cough (principal) ==

== ENCOUNTER 2019-04-26 15:42 | Inpatient (IN) | payer OTHER, BC | END 2019-05-02 14:35 | disposition home or self-care (01) | LOC: F2W 15:42 → F2N 20:02 → F2W 04-28 12:20 → F2N 23:21 ==

== ENCOUNTER → 2019-05-07 | Outpatient (CLI) | payer OTHER, BC | LOC: FLAB 13:16 ==

== ENCOUNTER → 2019-05-10 | Outpatient (CLI) | payer OTHER, BC | LOC: FIMAGING 15:26 ==

== ENCOUNTER → 2019-05-11 | Outpatient (CLI) | payer OTHER, BC | LOC: FIMAGING 11:34 ==

== ENCOUNTER → 2019-05-17 | Outpatient (CLI) | payer OTHER, BC | LOC: FIMAGING 13:58 ==

== ENCOUNTER → 2019-05-22 | Outpatient (CLI) | payer OTHER, BC | LOC: FIMAGING 11:02 ==

== ENCOUNTER → 2019-05-23 | Outpatient (CLI) | payer OTHER, BC | LOC: FIMAGING 09:29 ==